=== PATIENT | female | born 1930 | race Caucasian/White ===

== ENCOUNTER → 2016-06-12 | Outpatient (REF) | payer MEDICARE, BC ==
[2016-06-12 18:10] LABS: ALBUMIN 3.7 GM/DL (3.2-5.2); ALBUMIN/GLOBULIN RATIO 1.09 (1.00-1.93); BILIRUBIN,TOTAL 0.7 MG/DL (0.2-1.0); CALCIUM LEVEL 9.8 MG/DL (8.8-10.2); CREATININE FOR GFR 1.6 MG/DL (0.55-1.02); GLOMERULAR FILTRATION RATE 32.6 (>32); POTASSIUM SERUM 3.8 MEQ/L (3.5-5.1); TOTAL PROTEIN 7.1 GM/DL (6.4-8.2)
== END ==
LOC: M SFHCPLAZ 14:35
PROVIDERS: ATTEND Internal Medicine
DX: I10 Essential (primary) hypertension (principal); E11.9 Type 2 diabetes mellitus without complications; E03.9 Hypothyroidism, unspecified

== ENCOUNTER → 2017-06-10 | Outpatient (REF) | payer MEDICARE, BC ==
[2017-06-10 19:14] LABS: ESTIMATED AVERAGE GLUCOSE 140 MG/DL (60-110); HEMOGLOBIN A1c 6.5 %
[2017-06-10 19:20] LABS: PTH INTACT 132.6 PG/ML (18.5-88.0)
[2017-06-10 19:21] LABS: HEMATOCRIT 45.3 % (36.0-47.0); HEMOGLOBIN 14.9 g/dl (12.0-15.5); MEAN CORPUSCULAR HEMOGLOBIN 30.3 pg (27.0-33.0); MEAN CORPUSCULAR HGB CONC 32.9 g/dl (32.0-36.5); MEAN CORPUSCULAR VOLUME 92.3 fl (80.0-96.0); PLATELET COUNT, AUTOMATED 258 10^3/uL (150-450); RED BLOOD COUNT 4.91 10^6/uL (4.00-5.40); RED CELL DISTRIBUTION WIDTH 12.5 % (11.5-14.5); WHITE BLOOD COUNT 8.8 10^3/uL (4.0-10.0)
[2017-06-10 19:30] LABS: ALBUMIN 3.3 GM/DL (3.2-5.2); ALBUMIN/GLOBULIN RATIO 0.89 (1.00-1.93); ALKALINE PHOSPHATASE 93 U/L (45-117); ALT/SGPT 18 U/L (12-78); ANION GAP 6 MEQ/L (8-16); AST/SGOT 16 U/L (7-37); BILIRUBIN,TOTAL 0.8 MG/DL (0.2-1.0); BLOOD UREA NITROGEN 32 MG/DL (7-18); CALCIUM LEVEL 9.6 MG/DL (8.8-10.2); CARBON DIOXIDE LEVEL 32 MEQ/L (21-32); CHLORIDE LEVEL 104 MEQ/L (98-107); CHOLESTEROL LEVEL 153 MG/DL (<200); CHOLESTEROL RISK RATIO 3.825 (<5); CREATININE FOR GFR 1.53 MG/DL (0.55-1.30); GLOMERULAR FILTRATION RATE 34.3 (>32); GLUCOSE, FASTING 94 MG/DL (70-100); HDL CHOLESTEROL 40 MG/DL (>40); LDL CHOLESTEROL 75.8 MG/DL (<100); NON-HDL-C 113 MG/DL; SODIUM LEVEL 142 MEQ/L (136-145); TRIGLYCERIDES LEVEL 186 MG/DL (<150)
[2017-06-10 20:49] LABS: CREATININE, URINE 60.8 MG/DL; MAU/CREAT RATIO 1940.7 MCG/MG (0.0-30.0)
== END ==
LOC: M SFHCPLAZ 15:46
DX: Z00.00 Encounter for general adult medical examination without abnormal findings (principal); I12.9 Hypertensive chronic kidney disease with stage 1 through stage 4 chronic kidney disease, or unspecified chronic kidney disease; N18.3 Chronic kidney disease, stage 3 (moderate); E11.22 Type 2 diabetes mellitus with diabetic chronic kidney disease; E03.9 Hypothyroidism, unspecified; E78.00 Pure hypercholesterolemia, unspecified; Z79.84 Long term (current) use of oral hypoglycemic drugs; Z79.899 Other long term (current) drug therapy
CPT/HCPCS: 83735

== ENCOUNTER → 2018-01-01 | Outpatient (REF) | payer MEDICARE, BC ==
[2018-01-01 17:34] LABS: ALBUMIN 3.5 GM/DL (3.2-5.2); ALBUMIN/GLOBULIN RATIO 0.92 (1.00-1.93); ALKALINE PHOSPHATASE 76 U/L (45-117); ALT/SGPT 20 U/L (12-78); ANION GAP 11 MEQ/L (8-16); AST/SGOT 14 U/L (7-37); BILIRUBIN,TOTAL 0.9 MG/DL (0.2-1.0); BLOOD UREA NITROGEN 38 MG/DL (7-18); CALCIUM LEVEL 10.7 MG/DL (8.8-10.2); CARBON DIOXIDE LEVEL 30 MEQ/L (21-32); CHLORIDE LEVEL 103 MEQ/L (98-107); CHOLESTEROL LEVEL 191 MG/DL (<200); CHOLESTEROL RISK RATIO 4.152 (<5); CREATININE FOR GFR 1.78 MG/DL (0.55-1.30); GLOMERULAR FILTRATION RATE 28.8 (>32); GLUCOSE, FASTING 110 MG/DL (70-100); HDL CHOLESTEROL 46 MG/DL (>40); LDL CHOLESTEROL 105 MG/DL (<100); MAGNESIUM LEVEL 2.1 MG/DL (1.8-2.4); NON-HDL-C 145 MG/DL; POTASSIUM SERUM 3.9 MEQ/L (3.5-5.1); SODIUM LEVEL 144 MEQ/L (136-145); TOTAL PROTEIN 7.3 GM/DL (6.4-8.2); TRIGLYCERIDES LEVEL 202 MG/DL (<150)
[2018-01-01 17:42] LABS: ESTIMATED AVERAGE GLUCOSE 140 MG/DL (60-110); HEMOGLOBIN A1c 6.5 %
== END ==
LOC: M SFHCPLAZ 14:47
DX: E11.22 Type 2 diabetes mellitus with diabetic chronic kidney disease (principal); E78.00 Pure hypercholesterolemia, unspecified; N18.3 Chronic kidney disease, stage 3 (moderate)
CPT/HCPCS: 83735

== ENCOUNTER → 2018-07-22 | Outpatient (REF) | payer MEDICARE ==
[2018-07-22 18:06] LABS: HEMATOCRIT 44.4 % (36.0-47.0); HEMOGLOBIN 14.6 g/dl (12.0-15.5); MEAN CORPUSCULAR HEMOGLOBIN 31.1 pg (27.0-33.0); MEAN CORPUSCULAR HGB CONC 32.9 g/dl (32.0-36.5); MEAN CORPUSCULAR VOLUME 94.5 fl (80.0-96.0); PLATELET COUNT, AUTOMATED 293 10^3/uL (150-450)
[2018-07-22 18:19] LABS: ALBUMIN 3.3 GM/DL (3.2-5.2); BILIRUBIN,TOTAL 0.8 MG/DL (0.2-1.0); CALCIUM LEVEL 9.6 MG/DL (8.8-10.2); CHOLESTEROL RISK RATIO 3.86 (<5); CREATININE FOR GFR 1.96 MG/DL (0.55-1.30); GLOMERULAR FILTRATION RATE 25.7 (>32); MAGNESIUM LEVEL 2.1 MG/DL (1.8-2.4); POTASSIUM SERUM 3.9 MEQ/L (3.5-5.1); THYROID STIMULATING HORMONE 4.71 uIU/ML (0.358-3.740); TOTAL PROTEIN 7.2 GM/DL (6.4-8.2)
[2018-07-22 18:43] LABS: HEMOGLOBIN A1c 6.7 %
[2018-07-22 18:57] LABS: CREATININE, URINE 80.3 MG/DL; MAU/CREAT RATIO 3063.5 MCG/MG (0.0-30.0)
== END ==
LOC: M SFHCPLAZ 14:54
PROVIDERS: ATTEND Internal Medicine
DX: J45.909 Unspecified asthma, uncomplicated (principal); I12.9 Hypertensive chronic kidney disease with stage 1 through stage 4 chronic kidney disease, or unspecified chronic kidney disease; E11.9 Type 2 diabetes mellitus without complications; E78.00 Pure hypercholesterolemia, unspecified; E03.9 Hypothyroidism, unspecified

== ENCOUNTER → 2019-07-07 | Outpatient (REF) | payer MEDICARE ==
[2019-07-07 17:55] LABS: HEMATOCRIT 42.1 % (36.0-47.0); MEAN CORPUSCULAR HEMOGLOBIN 28.2 pg (27.0-33.0); MEAN CORPUSCULAR HGB CONC 30.9 g/dl (32.0-36.5); MEAN CORPUSCULAR VOLUME 91.3 fl (80.0-96.0); PLATELET COUNT, AUTOMATED 270 10^3/uL (150-450); RED BLOOD COUNT 4.61 10^6/uL (4.00-5.40); WHITE BLOOD COUNT 7.2 10^3/uL (4.0-10.0)
[2019-07-07 18:05] LABS: ALBUMIN 2.7 GM/DL (3.2-5.2); BILIRUBIN,TOTAL 0.9 MG/DL (0.2-1.0); CALCIUM LEVEL 9.5 MG/DL (8.8-10.2); CREATININE FOR GFR 2.28 MG/DL (0.55-1.30); GLOMERULAR FILTRATION RATE 21.5 (>32); MAGNESIUM LEVEL 2.1 MG/DL (1.8-2.4); POTASSIUM SERUM 4.3 MEQ/L (3.5-5.1); PTH INTACT 136.9 PG/ML (18.5-88.0); THYROID STIMULATING HORMONE 2.75 uIU/ML (0.358-3.740); TOTAL PROTEIN 6.9 GM/DL (6.4-8.2)
[2019-07-07 18:28] LABS: HEMOGLOBIN A1c 6.3 %
== END ==
LOC: M SFHCPLAZ 16:18
PROVIDERS: ATTEND Internal Medicine
DX: I12.9 Hypertensive chronic kidney disease with stage 1 through stage 4 chronic kidney disease, or unspecified chronic kidney disease (principal); E11.9 Type 2 diabetes mellitus without complications; N18.3 Chronic kidney disease, stage 3 (moderate); E03.9 Hypothyroidism, unspecified; J45.909 Unspecified asthma, uncomplicated; R60.9 Edema, unspecified

== ENCOUNTER → 2019-07-22 | Outpatient (REF) | payer MEDICARE ==
[2019-07-22 16:04] LABS: CALCIUM LEVEL 9.1 MG/DL (8.8-10.2); CREATININE FOR GFR 2.59 MG/DL (0.55-1.30); GLOMERULAR FILTRATION RATE 18.6 (>32); MAGNESIUM LEVEL 1.9 MG/DL (1.8-2.4); POTASSIUM SERUM 3.7 MEQ/L (3.5-5.1)
[2019-07-22 16:08] LABS: PTH INTACT 181.8 PG/ML (18.5-88.0)
== END ==
LOC: M SFHCPLAZ 13:51
PROVIDERS: ATTEND Internal Medicine
DX: I12.9 Hypertensive chronic kidney disease with stage 1 through stage 4 chronic kidney disease, or unspecified chronic kidney disease (principal); N18.3 Chronic kidney disease, stage 3 (moderate); R60.9 Edema, unspecified; I50.9 Heart failure, unspecified

== ENCOUNTER → 2019-12-03 | Outpatient (CLI) | payer MEDICARE ==
[2019-12-03 16:52] LABS: BASO # 0.1 10^3/uL (0.0-0.2); BASO % 0.9 % (0.0-1.0); EOS # 0.3 10^3/uL (0.0-0.5); EOS % 2.9 % (0.0-3.0); HEMATOCRIT 42.9 % (36.0-47.0); LYMPH # 1.9 10^3/uL (1.5-5.0); LYMPH % 19.5 % (24.0-44.0); MEAN CORPUSCULAR HGB CONC 32.6 g/dl (32.0-36.5); MEAN CORPUSCULAR VOLUME 95.1 fl (80.0-96.0); MONO # 0.9 10^3/uL (0.0-0.8); MONO % 9.2 % (0.0-5.0); NEUTROPHILS # 6.7 10^3/uL (1.5-8.5); PLATELET COUNT, AUTOMATED 299 10^3/uL (150-450); RED BLOOD COUNT 4.51 10^6/uL (4.00-5.40); WHITE BLOOD COUNT 9.9 10^3/uL (4.0-10.0)
[2019-12-03 16:56] LABS: ALBUMIN 3.1 GM/DL (3.2-5.2); BILIRUBIN,TOTAL 0.8 MG/DL (0.2-1.0); CALCIUM LEVEL 9.8 MG/DL (8.8-10.2); CHOLESTEROL RISK RATIO 3.125 (<5); CREATININE FOR GFR 1.85 MG/DL (0.55-1.30); GLOMERULAR FILTRATION RATE 27.4 (>32); POTASSIUM SERUM 3.9 MEQ/L (3.5-5.1); TOTAL PROTEIN 7.1 GM/DL (6.4-8.2)
[2019-12-07 11:57] LABS: PTH INTACT 58.2 PG/ML (18.5-88.0)
== END ==
LOC: M PLALAB 13:48
PROVIDERS: ATTEND Internal Medicine
DX: I12.9 Hypertensive chronic kidney disease with stage 1 through stage 4 chronic kidney disease, or unspecified chronic kidney disease (principal); I50.9 Heart failure, unspecified; N18.3 Chronic kidney disease, stage 3 (moderate); I48.19 Other persistent atrial fibrillation; E78.00 Pure hypercholesterolemia, unspecified; E11.8 Type 2 diabetes mellitus with unspecified complications

== ENCOUNTER 2020-03-25 15:18 | Inpatient (IN) | payer MEDICARE ==
[~2020-03-25] VITALS: Ht 160 cm; Wt 81.9 kg
--- OUTSIDE RECORDS SUMMARY | 2020-03-25 15:23 | CCD ---
Author Author [facility] Organization [facility] Address Unknown Phone Unavailable Support Name Relationship Address Phone RETIRED Next Of Kin Unknown RADHA BORJAS Next Of Kin [address] [place] [address] SHELBIE BORJAS Next Of Kin [address] [place] [address] Yogesh Borjas & Radha ECON [address] [place] [address] Unavailable Re-disclosure Warning The records that you are about to access may contain information from federally-assisted alcohol or drug abuse programs. If such information is present, then the following federally mandated warning applies: This information has been disclosed to you from records protected by federal confidentiality rules (42 CFR part 2). The federal rules prohibit you from making any further disclosure of this information unless further disclosure is expressly permitted by the written consent of the person to whom it pertains or as otherwise permitted by 42 CFR part 2. A general authorization for the release of medical or other information is NOT sufficient for this purpose. The Federal rules restrict any use of the information to criminally investigate or prosecute any alcohol or drug abuse patient.The records that you are about to access may contain highly sensitive health information, the redisclosure of which is protected by Article 27-F of the [facility] Public Health law. If you continue you may have access to information: Regarding HIV / AIDS; Provided by facilities licensed or operated by the [facility] Office of Mental Health; or Provided by the [facility] Office for People With Developmental Disabilities. If such information is present, then the following [facility] mandated warning applies: This information has been disclosed to you from confidential records which are protected by state law. State law prohibits you from making any further disclosure of this information without the specific written consent of the person to whom it pertains, or as otherwise permitted by law. Any unauthorized further disclosure in violation of state law may result in a fine or fpc sentence or both. A general authorization for the release of medical or other information is NOT sufficient authorization for further disc losure. Encounters Encounter Providers Location Date Indications Data Source(s ) [facility] [place] [facility] [address] 08/31/2019 12:00:00 AM EDT eCW1 ([facility]) Unknown [address] [facility] [place] [address] 08/28/2019 12:00:00 AM EDT eCW1 ([facility]) [facility] Matt [address] [facility] [place] [address] 07/22/2019 12:00:00 AM EDT eCW1 ([facility]) [facility] Matt Edouard [facility] [address] 07/07/2019 12:00:00 AM EDT eCW1 ([facility]) [facility] Matt Edouard [facility] [address] 06/08/2019 12:00:00 AM EDT eCW1 ([facility]) [facility] [address] 01/27/2019 12:00:00 AM EST eCW1 ([facility]) Medications Medication Brand Name Start Date Product Form Dose Route Admi nistrative Instructions Pharmacy Instructions Status Indications Reaction Description Data Source(s) 17 gram/dose 03/21/2020 12:00:00 AM EST powder 1530 MIX ONE CAPFUL IN 8OZ OF WATER OR JUICE DAILY MIX ONE CAPFUL IN 8OZ OF WATER OR JUICE DAILY SOLD: 03/22/2020 [facility] 200 mg 03/21/2020 12:00:00 AM EST capsule 90 TAKE ONE CAPSULE BY MOUTH EVERY DAY TAKE ONE CAPSULE BY MOUTH EVERY DAY SOLD: 03/22/2020 [facility] atorvastatin 10 MG Oral Tablet ATORVASTATIN CALCIUM 02/02/2020 1 2:00:00 AM EST tablet 90 TAKE ONE TABLET BY MOUTH EVERY D AY TAKE ONE TABLET BY MOUTH EVERY DAY SOLD: 02/02/2020 [facility] 20 mg 02/02/2020 12:00:00 AM EST capsule,delayed release (DR/EC) 90 TAKE ONE CAPSULE BY MOUTH EVERY DAY TAKE ONE CAPSULE BY MOUTH EVERY DAY SOLD: 02/02/2020 [facility] 20 mEq 01/08/2020 12:00:00 AM EDT tablet extended release 90 TAKE ONE TABLET BY MOUTH ONCE DAILY WITH FOOD TAKE ONE TABLET BY MOUTH ONCE DAILY WITH FOOD SOLD: 01/16/2020 [facility] 20 mg 01/08/2020 12:00:00 AM EDT tablet 90 TAKE ONE TABLET BY MOUTH EVERY MORNING TAKE ONE TABLET BY MOUTH EVERY MORNING SOLD: 01/16/2020 [facility] 0.25 mcg 12/27/2019 12:00:00 AM EDT capsule 90 TAKE ONE CAPSULE BY MOUTH EVERY DAY TAKE ONE CAPSULE BY MOUTH EVERY DAY SOLD: 12/27/2019 [facility] 20 mEq 11/03/2019 12:00:00 AM EDT tablet extended release 90 TAKE ONE TABLET BY MOUTH ONCE DAILY WITH FOOD TAKE ONE TABLET BY MOUTH ONCE DAILY WITH FOOD SOLD: 11/03/2019 [facility] 20 mg 11/03/2019 12:00:00 AM EDT tablet 90 TAKE ONE TABLET BY MOUTH EVERY MORNING TAKE ONE TABLET BY MOUTH EVERY MORNING SOLD: 11/03/2019 [facility] Calcitriol 0.11862 MG Oral Capsule 0.25 mcg CALCITRIOL 10/16/2019 12:00:00 AM EDT capsule 90 TAKE ONE CAPSULE BY MOUTH EV KATHYA DAY TAKE ONE CAPSULE BY MOUTH EVERY DAY SOLD: 10/19/2019 [facility] 160-25 mg 10/15/2019 12:00:00 AM EDT tablet 90 TAKE 1 TABLET BY MOUTH ONCE A DAY TAKE 1 TABLET BY MOUTH ONCE A DAY SOLD: 10/15/2019 [facility] 160-25 mg 10/15/2019 12:00:00 AM EDT tablet 90 TAKE 1 TABLET BY MOUTH ONCE A DAY TAKE 1 TABLET BY MOUTH ONCE A DAY SOLD: 02/02/2020 [facility] 88 mcg 10/06/2019 12:00:00 AM EDT tablet 90 TAKE 1 TABLET BY MOUTH ONCE A DAY TAKE 1 TABLET BY MOUTH ONCE A DAY SOLD: 01/03/2020 [facility] 88 mcg 10/06/2019 12:00:00 AM EDT tablet 90 TAKE 1 TABLET BY MOUTH ONCE A DAY TAKE 1 TABLET BY MOUTH ONCE A DAY SOLD: 03/22/2020 [facility] 88 mcg 10/06/2019 12:00:00 AM EDT tablet 90 TAKE 1 TABLET BY MOUTH ONCE A DAY TAKE 1 TABLET BY MOUTH ONCE A DAY SOLD: 10/06/2019 [facility] 5 mg 07/07/2019 12:00:00 AM EDT tablet 45 TAKE 1/2 TABLET TABLET BY MOUTH ONCE A DAY TAKE 1/2 TABLET TABLET BY MOUTH ONCE A DAY SOLD: 10/31/2019 [facility] 20 mg 07/07/2019 12:00:00 AM EDT tablet 30 TAKE 1 TABLET BY MOUTH DAILY TAKE 1 TABLET BY MOUTH DAILY SOLD: 12/27/2019 [facility] 20 mg 07/07/2019 12:00:00 AM EDT tablet 30 TAKE 1 TABLET BY MOUTH DAILY TAKE 1 TABLET BY MOUTH DAILY SOLD: 07/07/2019 [facility] 20 mg 07/07/2019 12:00:00 AM EDT tablet 30 TAKE 1 TABLET BY MOUTH DAILY TAKE 1 TABLET BY MOUTH DAILY SOLD: 08/16/2019 [facility] torsemide 20 MG Oral Tablet Torsemide 20 MG Torsemide 20 MG 07/07/2019 12:00:00 AM EDT active 1 tab eCW1 ([facility]) 20 mg 07/07/2019 12:00:00 AM EDT tablet 30 TAKE 1 TABLET BY MOUTH DAILY TAKE 1 TABLET BY MOUTH DAILY SOLD: 10/15/2019 [facility] 20 mEq 07/07/2019 12:00:00 AM EDT tablet extended release 90 TAKE 1 TABLET BY MOUTH ONCE A DAY WITH FOOD TAKE 1 TABLET BY MOUTH ONCE A DAY WITH FOOD SOLD: 07/07/2019 [facility] 5 mg 07/07/2019 12:00:00 AM EDT tablet 45 TAKE 1/2 TABLET TABLET BY MOUTH ONCE A DAY TAKE 1/2 TABLET TABLET BY MOUTH ONCE A DAY SOLD: 07/07/2019 [facility] 20 mg 07/07/2019 12:00:00 AM EDT tablet 30 TAKE 1 TABLET BY MOUTH DAILY TAKE 1 TABLET BY MOUTH DAILY SOLD: 03/22/2020 [facility] 5 mg 07/07/2019 12:00:00 AM EDT tablet 45 TAKE 1/2 TABLET TABLET BY MOUTH ONCE A DAY TAKE 1/2 TABLET TABLET BY MOUTH ONCE A DAY SOLD: 01/31/2020 [facility] 10 mg 06/30/2019 12:00:00 AM EDT tablet 90 TAKE ONE TABLET BY MOUTH EVERY DAY TAKE ONE TABLET BY MOUTH EVERY DAY SOLD: 01/03/2020 [facility] 10 mg 06/30/2019 12:00:00 AM EDT tablet 90 TAKE ONE TABLET BY MOUTH EVERY DAY TAKE ONE TABLET BY MOUTH EVERY DAY SOLD: 06/30/2019 [facility] 200 mg 03/18/2019 12:00:00 AM EST capsule 90 TAKE 1 CAPSULE BY MOUTH ONCE A DAY TAKE 1 CAPSULE BY MOUTH ONCE A DAY SOLD: 12/27/2019 [facility] 200 mg 03/18/2019 12:00:00 AM EST capsule 90 TAKE 1 CAPSULE BY MOUTH ONCE A DAY TAKE 1 CAPSULE BY MOUTH ONCE A DAY SOLD: 09/29/2019 [facility] 200 mg 03/18/2019 12:00:00 AM EST capsule 90 TAKE 1 CAPSULE BY MOUTH ONCE A DAY TAKE 1 CAPSULE BY MOUTH ONCE A DAY SOLD: 06/30/2019 [facility] 200 mg 03/18/2019 12:00:00 AM EST capsule 90 TAKE 1 CAPSULE BY MOUTH ONCE A DAY TAKE 1 CAPSULE BY MOUTH ONCE A DAY SOLD: 03/19/2019 [facility] atorvastatin 10 MG Oral Tablet ATORVASTATIN CALCIUM 02/03/2019 1 2:00:00 AM EST tablet 90 TAKE ONE TABLET BY MOUTH EVERY D AY TAKE ONE TABLET BY MOUTH EVERY DAY SOLD: 02/03/2019 [facility] 20 mg 02/03/2019 12:00:00 AM EST capsule,delayed release (DR/EC) 90 TAKE ONE CAPSULE BY MOUTH EVERY DAY TAKE ONE CAPSULE BY MOUTH EVERY DAY SOLD: 02/03/2019 [facility] 10 mg 02/03/2019 12:00:00 AM EST tablet 90 TAKE ONE TABLET BY MOUTH EVERY DAY TAKE ONE TABLET BY MOUTH EVERY DAY SOLD: 05/05/2019 [facility] 20 mg 02/03/2019 12:00:00 AM EST capsule,delayed release (DR/EC) 90 TAKE ONE CAPSULE BY MOUTH EVERY DAY TAKE ONE CAPSULE BY MOUTH EVERY DAY SOLD: 10/31/2019 [facility] 20 mg 02/03/2019 12:00:00 AM EST capsule,delayed release (DR/EC) 90 TAKE ONE CAPSULE BY MOUTH EVERY DAY TAKE ONE CAPSULE BY MOUTH EVERY DAY SOLD: 08/04/2019 [facility] 20 mg 02/03/2019 12:00:00 AM EST capsule,delayed release (DR/EC) 90 TAKE ONE CAPSULE BY MOUTH EVERY DAY TAKE ONE CAPSULE BY MOUTH EVERY DAY SOLD: 05/05/2019 [facility] 10 mg 02/03/2019 12:00:00 AM EST tablet 90 TAKE ONE TABLET BY MOUTH EVERY DAY TAKE ONE TABLET BY MOUTH EVERY DAY SOLD: 08/04/2019 [facility] 10 mg 02/03/2019 12:00:00 AM EST tablet 90 TAKE ONE TABLET BY MOUTH EVERY DAY TAKE ONE TABLET BY MOUTH EVERY DAY SOLD: 10/31/2019 [facility] 17 gram/dose 11/05/2018 12:00:00 AM EDT powder 1530 MIX 1 CAPFUL IN 8 OUNCES OF WATER OR JUICE ONCE DAILY MIX 1 CAPFUL IN 8 OUNCES OF WATER OR JUI CE ONCE DAILY SOLD: 06/30/2019 [facility] 160-25 mg 07/23/2018 12:00:00 AM EDT tablet 90 TAKE ONE TABLET BY MOUTH EVERY DAY TAKE ONE TABLET BY MOUTH EVERY DAY SOLD: 02/03/2019 [facility] 160-25 mg 07/23/2018 12:00:00 AM EDT tablet 90 TAKE ONE TABLET BY MOUTH EVERY DAY TAKE ONE TABLET BY MOUTH EVERY DAY SOLD: 05/05/2019 [facility] 20 mg 07/23/2018 12:00:00 AM EDT tablet 90 TAKE ONE TABLET BY MOUTH EVERY MORNING TAKE ONE TABLET BY MOUTH EVERY MORNING SOLD: 03/24/2019 [facility] Calcitriol 0.88450 MG Oral Capsule 0.25 mcg CALCITRIOL 07/23/2018 12:00:00 AM EDT capsule 90 TAKE ONE CAPSULE BY MOUTH KATHYA TAKE ONE CAPSULE BY MOUTH EVERY DAY SOLD: 07/14/2019 [facility] Calcitriol 0.97684 MG Oral Capsule 0.25 mcg CALCITRIOL 07/23/2018 12:00:00 AM EDT capsule 90 TAKE ONE CAPSULE BY MOUTH KATHYA DAY TAKE ONE CAPSULE BY MOUTH EVERY DAY SOLD: 04/07/2019 [facility] 88 mcg 07/23/2018 12:00:00 AM EDT tablet 90 TAKE ONE TABLET BY MOUTH EVERY DAY TAKE ONE TABLET BY MOUTH EVERY DAY SOLD: 06/30/2019 [facility] 5 mg 07/23/2018 12:00:00 AM EDT tablet 45 TAKE 1/2 TABLET BY MOUTH ONCE DAILY TAKE 1/2 TABLET BY MOUTH ONCE DAILY SOLD: 04/07/2019 [facility] 88 mcg 07/23/2018 12:00:00 AM EDT tablet 90 TAKE ONE TABLET BY MOUTH EVERY DAY TAKE ONE TABLET BY MOUTH EVERY DAY SOLD: 04/07/2019 [facility] 10 mg 07/14/2018 12:00:00 AM EDT tablet 90 TAKE ONE TABLET BY MOUTH EVERY DAY TAKE ONE TABLET BY MOUTH EVERY DAY SOLD: 04/07/2019 [facility] 0.3 mg 07/11/2018 12:00:00 AM EDT tablet, sublingual 100 PLACE 1 TABLET UNDER TONGUE DIRECTED NEEDED CHEST PAIN PLACE 1 TABLET UNDER TONGUE DIRECTED NEEDED CHEST PAIN SOLD: 03/17/2019 [facility] 90 mcg/actuation 06/18/2018 12:00:00 AM EDT HFA aerosol inha ler 25 INHALE 2 PUFFS BY MOUTH EVERY 4HRS NEEDED SHORTNESS OF BREATH/ WHEEZING INHALE 2 PUFFS BY MOUTH EVERY 4HRS NEEDED SHORTNESS OF BREATH/ WHEEZING SOLD: 04/09/2019 [facility] 90 mcg/actuation 06/18/2018 12:00:00 AM EDT HFA aerosol inha ler 25 INHALE 2 PUFFS BY MOUTH EVERY 4HRS NEEDED SHORTNESS OF BREATH/ WHEEZING INHALE 2 PUFFS BY MOUTH EVERY 4HRS NEEDED SHORTNESS OF BREATH/ WHEEZING SOLD: 06/05/2019 [facility] 90 mcg/actuation 06/18/2018 12:00:00 AM EDT HFA aerosol inha ler 25 INHALE 2 PUFFS BY MOUTH EVERY 4HRS NEEDED SHORTNESS OF BREATH/ WHEEZING INHALE 2 PUFFS BY MOUTH EVERY 4HRS NEEDED SHORTNESS OF BREATH/ WHEEZING SOLD: 02/03/2019 [facility] 20 mEq 03/18/2018 12:00:00 AM EST tablet extended release 90 TAKE ONE TABLET BY MOUTH ONCE DAILY WITH FOOD TAKE ONE TABLET BY MOUTH ONCE DAILY WITH FOOD SOLD: 03/17/2019 [facility] Insurance Providers Payer name Policy type / Coverage type Policy ID Covered democrat ID Covered democrat's relationship to yates Policy Yates Plan Information MEDICARE BLUE PPO [id number] SP [id number] ANSI-Commercial [id number] ANSI-Medicare Part B [id number] ANSI-Medicare Part B [id number] ANSI-Medicare Part B [id number] ANSI-Medicare Part B [id number] ANSI-Commercial [id number] ANSI-Medicare Part B [id number] ANSI-Commercial [id number] ANSI-Commercial [id number] ANSI-Medicare Part B [id number] MEDICARE [id number] SP [id number] [employer]BS [place] PPO 302/[id number] SP [id number] ANSI-Commercial [id number] ANSI-Medicare Part B [id number] [facility]-Commercial [id number] [facility] [id number] MEDICARE [id number] SP [id number] B [id number] B [id number] Problems, Conditions, and Diagnoses Code Display Name Description Problem Type Effective Dates Data Source(s) I48.19 [id number] Other persistent atrial fibrillation Prob daron 07/22/2019 12:00:00 AM EDT eCW1 ([facility]) I48.19 [id number] Other persistent atrial fibrillation Prob daron 07/22/2019 12:00:00 AM EDT eCW1 ([facility]) I48.91 [id number] Atrial fibrillation, unspecified type Pro blem 07/08/2019 12:00:00 AM EDT eCW1 ([facility]) I50.9 [id number] Other congestive heart failure Problem 07/08/2019 12:00:00 AM EDT eCW1 ([facility]) I48.91 [id number] Atrial fibrillation, unspecified type Pro blem 07/08/2019 12:00:00 AM EDT eCW1 ([facility]) I50.9 [id number] Other congestive heart failure Problem 07/08/2019 12:00:00 AM EDT eCW1 ([facility]) Surgeries/Procedures Procedure Description Date Indications Data Source(s) Office Visit, Est Pt., Level 4 PC 07/22/2019 12:00:00 AM EDT eCW1 ([facility]) Office Visit, Est Pt., Level 4 FC 07/07/2019 12:00:00 AM EDT eCW1 ([facility]) Office Visit, Est Pt., Level 5 PC 07/07/2019 12:00:00 AM EDT eCW1 ([facility]) Medicare, Tricare, Martins, PC-INTERPRETATION AND REPORT 07/07/2019 12:00:00 AM EDT eCW1 ([facility]) Medicare, Tricare, [place]ins, FC-ELECTROCARDIOGRAM, TRACING ON LY 07/07/2019 12:00:00 AM EDT eCW1 ([facility]) Results ID Date Data Source PTH INTACT 07/22/2019 12:00:00 AM EDT eCW1 ([facility]) Name Value Range Interpretation Code Description Data Venessa rce(s) Supporting Document(s) 181.8 18.5-88.0 PTH INTACT eCW1 ([facility]) ID Date Data Source MAGNESIUM LEVEL 07/22/2019 12:00:00 AM EDT eCW1 ([facility]) Name Value Range Interpretation Code Description Data Venessa rce(s) Supporting Document(s) 1.9 1.8-2.4 MAGNESIUM LEVEL eCW1 ([facility]) ID Date Data Source Basic Metabolic Profile (BMP) 07/22/2019 12:00:00 AM EDT eCW 1 ([facility]) Name Value Range Interpretation Code Description Data Venessa rce(s) Supporting Document(s) 51 7-18 BLOOD UREA NITROGEN eCW1 ([facility]) 89 70-100 GLUCOSE, FASTING eCW1 ([facility]) 2.59 0.55-1.30 CREATININE FOR GFR eCW1 (On license of [facility]) 138 136-145 SODIUM LEVEL eCW1 ([facility]) 18.6 >32 GLOMERULAR FILTRATION RATE eCW 1 ([facility]) 3.7 3.5-5.1 POTASSIUM SERUM eCW1 ([facility]) 97 98-107 CHLORIDE LEVEL eCW1 ([facility]) 35 21-32 CARBON DIOXIDE LEVEL eCW1 ([facility]) 9.1 8.8-10.2 CALCIUM LEVEL eCW1 ([facility]) ID Date Data Source NT-PRO BNP 07/22/2019 12:00:00 AM EDT eCW1 ([facility]) Name Value Range Interpretation Code Description Data Venessa rce(s) Supporting Document(s) 4034 <450 NT-PRO BNP eCW1 ([facility]) ID Date Data Source TSH 07/07/2019 12:00:00 AM EDT eCW1 ([facility]) Name Value Range Interpretation Code Description Data Venessa rce(s) Supporting Document(s) 2.750 0.358-3.740 THYROID STIMULATING HORM ONE eCW1 ([facility]) ID Date Data Source 4548-4 07/07/2019 12:00:00 AM EDT eCW1 ([facility]) Name Value Range Interpretation Code Description Data Venessa rce(s) Supporting Document(s) Hemoglobin A1c/Hemoglobin.total in Blood 6.3 HEMOGLOBIN A1c eCW1 ([facility]) ID Date Data Source Comprehensive Metabolic Profile (CMP) 07/07/2019 12:00:00 AM EDT eCW1 ([facility]) Name Value Range Interpretation Code Description Data Venessa rce(s) Supporting Document(s) 89 70-100 GLUCOSE, FASTING eCW1 ([facility]) 40 7-18 BLOOD UREA NITROGEN eCW1 ([facility]) 21.5 >32 GLOMERULAR FILTRATION RATE eCW 1 ([facility]) 2.28 0.55-1.30 CREATININE FOR GFR eCW1 (On license of [facility]) 4.3 3.5-5.1 POTASSIUM SERUM eCW1 ([facility]) 144 136-145 SODIUM LEVEL eCW1 ([facility]) 108 98-107 CHLORIDE LEVEL eCW1 ([facility]) 28 21-32 CARBON DIOXIDE LEVEL eCW1 ([facility]) 9.5 8.8-10.2 CALCIUM LEVEL eCW1 ([facility]) 4 7-37 AST/SGOT eCW1 ([facility]) 6.9 6.4-8.2 TOTAL PROTEIN eCW1 ([facility]) 10 12-78 ALT/SGPT eCW1 ([facility]) 90 45-117 ALKALINE PHOSPHATASE eCW1 ([facility]) 0.9 0.2-1.0 BILIRUBIN,TOTAL eCW1 ([facility]) 0.64 1.00-1.93 ALBUMIN/GLOBULIN RATIO eCW1 ([facility]) 2.7 3.2-5.2 ALBUMIN eCW1 ([facility]) ID Date Data Source CBC - Complete Blood Count 07/07/2019 12:00:00 AM EDT eCW1 ( [facility]) Name Value Range Interpretation Code Description Data Venessa rce(s) Supporting Document(s) 13.0 12.0-15.5 HEMOGLOBIN eCW1 ([facility]) 7.2 4.0-10.0 WHITE BLOOD COUNT eCW1 ([facility]) 42.1 36.0-47.0 HEMATOCRIT eCW1 ([facility]) 4.61 4.00-5.40 RED BLOOD COUNT eCW1 ([facility]) 91.3 80.0-96.0 MEAN CORPUSCULAR VOLUME e CW1 ([facility]) 30.9 32.0-36.5 MEAN CORPUSCULAR HGB CONC eCW1 ([facility]) 28.2 27.0-33.0 MEAN CORPUSCULAR HEMOGLOB IN eCW1 ([facility]) 270 150-450 PLATELET COUNT, AUTOMATED eCW1 ([facility]) 15.5 11.5-14.5 RED CELL DISTRIBUTION WID TH eCW1 ([facility]) Procedure Social History Code Duration Value Status Description Data Source(s ) Smoking 07/22/2019 12:00:00 AM EDT Former Smoker completed Former Smoker eCW1 ([facility]) Vital Signs ID Date Data Source UNK Name Value Range Interpretation Code Description Data Source(s) Diastolic blood pressure 58 mm[Hg] 58 mm[Hg] eCW1 ([facility]) Systolic blood pressure 134 mm[Hg] 134 mm[Hg] e CW1 ([facility]) Body temperature [degF] eCW1 ([facility]) Respiratory rate 18 /min 18 /min eCW1 ([facility]) Heart rate 77 /min 77 /min eCW1 ([facility]) Body mass index (BMI) [Ratio] 34.25 kg/m2 34.25 kg/m2 eCW1 ([facility]) Body height 60 [in_us] 60 [in_us] eCW1 ([facility]) Body weight Measured 175.4 [lb_av] 175.4 [lb_av ] eCW1 ([facility]) Diastolic blood pressure 52 mm[Hg] 52 mm[Hg] eCW1 ([facility]) Systolic blood pressure 118 mm[Hg] 118 mm[Hg] e CW1 ([facility]) Body temperature 97.3 [degF] 97.3 [degF] eCW1 ( [facility]) Respiratory rate 18 /min 18 /min eCW1 ([facility]) Heart rate 75 /min 75 /min eCW1 ([facility]) Body mass index (BMI) [Ratio] 39.06 kg/m2 39.06 kg/m2 eCW1 ([facility]) Body height 60 [in_us] 60 [in_us] eCW1 ([facility]) Body weight Measured 200.0 [lb_av] 200.0 [lb_av ] eCW1 ([facility]) Patient Treatment Plan of Care Planned Activity Planned Date Details Description Data Source (s) torsemide 20 MG Oral Tablet 07/07/2019 12:00:00 AM EDT eCW1 ([facility])
[2020-03-25] MEDS ORDERED: CALC1CAP31 PO (16:14)
[2020-03-25] MEDS ORDERED: PARO20TA3 PO (16:14)
[2020-03-25] MEDS ORDERED: BISO5TAB14 PO (16:14)
[2020-03-25] MEDS ORDERED: PROAAER10 PO (16:14)
[2020-03-25] MEDS ORDERED: TORS20TA2 PO (16:14)
[2020-03-25] MEDS ORDERED: AMLO1TAB25 PO (16:14)
[2020-03-25] MEDS ORDERED: POTA1TAB14 PO (16:14)
[2020-03-25] MEDS ORDERED: LEVO88TA3 PO (16:14)
[2020-03-25] MEDS ORDERED: CELE1CAP9 PO (16:14)
[2020-03-25] MEDS ORDERED: OMEP-218 PO (16:14)
[2020-03-25] MEDS ORDERED: VALS160T3 PO (16:14)
[2020-03-25] MEDS ORDERED: ATOR1TAB19 PO (16:14)
--- NOTE | 2020-03-25 16:38 | REP ---
INDICATION: palpitations. COMPARISON: . TECHNIQUE: SINGLE PORTABLE AP VIEW OF THE CHEST WAS PERFORMED. FINDINGS: There is moderate cardiomegaly. There is no definite acute infiltrate. There is mild calcification of the thoracic aorta. Mediastinal silhouette otherwise appears unremarkable. IMPRESSION: Moderate cardiomegaly. No acute infiltrate. <Electronically signed by Maurice Orellana > 03/25/20 [id number]
--- OUTSIDE RECORDS SUMMARY | 2020-03-25 17:08 | CCD ---
Author Author [facility] Organization [facility] Address Unknown Phone Unavailable Support Name Relationship Address Phone RETIRED Next Of Kin Unknown RADHA BORJAS Next Of Kin [address] [place] [address] SHELBIE BORJAS Next Of Kin [address] [place] [address] Yogesh Borjas & Radha ECON [address] [facility] [place] [address] Unavailable Re-disclosure Warning The records that you [...] is protected by Article 27-F of the [facility] Public Health law. If you continue you may have access to information: Regarding HIV / AIDS; Provided by facilities licensed or operated by the [facility] Office of Mental Health; or Provided by the [facility] Office for People With Developmental Disabilities. If such information is present, then the following [facility] mandated warning applies: This information has been [...] law may result in a fine or assisted sentence or both. A general authorization for the release of medical or other information is NOT sufficient authorization for further disc losure. Encounters Encounter Providers Location Date Indications Data Source(s ) [facility] Matt [place]ard [facility] [address] 08/31/2019 12:00:00 AM EDT eCW1 ([facility]) Unknown [address] [facility] [place] [address] 08/28/2019 12:00:00 AM EDT eCW1 ([facility]) [facility] Matt [address] [facility] [place] [address] 07/22/2019 12:00:00 AM EDT eCW1 ([facility]) [facility] Matt Edouard [facility] [address] 07/07/2019 12:00:00 AM EDT eCW1 ([facility]) [facility] Matt Edouard [facility] [address] 06/08/2019 12:00:00 AM EDT eCW1 ([facility]) [facility] [address] 01/27/2019 12:00:00 AM EST eCW1 ([facility]) Medications Medication Brand Name Start Date [...] EVERY MORNING SOLD: 11/03/2019 [facility] Calcitriol 0.22490 MG Oral Capsule 0.25 mcg CALCITRIOL 10/16/2019 [...] 12:00:00 AM EDT active 1 tab eCW1 ([facility]) 20 mg 07/07/2019 12:00:00 AM EDT [...] EVERY MORNING SOLD: 03/24/2019 [facility] Calcitriol 0.07712 MG Oral Capsule 0.25 mcg CALCITRIOL 07/23/2018 12:00:00 AM EDT capsule 90 TAKE ONE CAPSULE BY MOUTH KATHYA TAKE ONE CAPSULE BY MOUTH EVERY DAY SOLD: 07/14/2019 [facility] Calcitriol 0.96407 MG Oral Capsule 0.25 mcg CALCITRIOL 07/23/2018 [...] [facility] Plan Information MEDICARE BLUE PPO 306 [id number] SP [id number] ANSI-Commercial [id number] ANSI-Medicare Part B [id number] ANSI-Medicare Part B [id number] ANSI-Medicare Part B [id number] ANSI-Medicare Part B [id number] ANSI-Commercial [id number] ANSI-Medicare Part B [id number] ANSI-Commercial [id number] ANSI-Commercial [id number] ANSI-Medicare Part B [id number] MEDICARE [id number] SP [id number] [employer] [place] PPO 302/307 [id number] SP [id number] ANSI-Commercial [id number] ANSI-Medicare Part B [id number] [facility]-Commercial [id number] [facility] [id number] MEDICARE [id number] SP [id number] B [id number] B [id number] Problems, Conditions, and Diagnoses Code Display Name Description Problem Type Effective Dates Data Source(s) I48.19 [id number] Other persistent atrial fibrillation Prob daron 07/22/2019 12:00:00 AM EDT eCW1 ([facility]) I48.19 [id number] Other persistent atrial fibrillation Prob daron 07/22/2019 12:00:00 AM EDT eCW1 ([facility]) I48.91 [id number] Atrial fibrillation, unspecified type Pro blem 07/08/2019 12:00:00 AM EDT eCW1 ([facility]) I50.9 [id number] Other congestive heart failure Problem 07/08/2019 12:00:00 AM EDT eCW1 ([facility]) I48.91 [id number] Atrial fibrillation, unspecified type Pro blem 07/08/2019 12:00:00 AM EDT eCW1 ([facility]) I50.9 [id number] Other congestive heart failure Problem 07/08/2019 12:00:00 AM EDT eCW1 ([facility]) Surgeries/Procedures Procedure Description Date Indications Data Source(s) Office Visit, Est Pt., Level 4 PC 07/22/2019 12:00:00 AM EDT eCW1 ([facility]) Office Visit, Est Pt., Level 4 FC 07/07/2019 12:00:00 AM EDT eCW1 ([facility]) Office Visit, Est Pt., Level 5 PC 07/07/2019 12:00:00 AM EDT eCW1 ([facility]) Medicare, T[employer]are, [place], PC-INTERPRETATION AND REPORT 07/07/2019 12:00:00 AM EDT eCW1 ([facility]) Medicare, [employer]are, [place], FC-ELECTROCARDIOGRAM, TRACING ON LY 07/07/2019 12:00:00 AM EDT eCW1 ([facility]) Results ID Date Data Source PTH INTACT 07/22/2019 12:00:00 AM EDT eCW1 ([facility]) Name Value Range Interpretation Code Description Data Venessa rce(s) Supporting Document(s) 181.8 18.5-88.0 PTH INTACT eCW1 ([facility]) ID Date Data Source MAGNESIUM LEVEL 07/22/2019 12:00:00 AM EDT eCW1 ([facility]) Name Value Range Interpretation Code Description Data Venessa rce(s) Supporting Document(s) 1.9 1.8-2.4 MAGNESIUM LEVEL eCW1 ([facility]) ID Date Data Source Basic Metabolic Profile (BMP) 07/22/2019 12:00:00 AM EDT eCW 1 ([facility]) Name Value Range Interpretation Code Description Data Venessa rce(s) Supporting Document(s) 51 7-18 BLOOD UREA NITROGEN eCW1 ([facility]) 89 70-100 GLUCOSE, FASTING eCW1 ([facility]) 2.59 0.55-1.30 CREATININE FOR GFR eCW1 ([facility]) 138 136-145 SODIUM LEVEL eCW1 ([facility]) 18.6 >32 GLOMERULAR FILTRATION RATE eCW 1 ([facility]) 3.7 3.5-5.1 POTASSIUM SERUM eCW1 ([facility]) 97 98-107 CHLORIDE LEVEL eCW1 ([facility]) 35 21-32 CARBON DIOXIDE LEVEL eCW1 ([facility]) 9.1 8.8-10.2 CALCIUM LEVEL eCW1 ([facility]) ID Date Data Source NT-PRO BNP 07/22/2019 12:00:00 AM EDT eCW1 ([facility]) Name Value Range Interpretation Code Description Data Venessa rce(s) Supporting Document(s) 4034 <450 NT-PRO BNP eCW1 ([facility]) ID Date Data Source TSH 07/07/2019 12:00:00 AM EDT eCW1 ([facility]) Name Value Range Interpretation Code Description Data Venessa rce(s) Supporting Document(s) 2.750 0.358-3.740 THYROID STIMULATING HORM ONE eCW1 ([facility]) ID Date Data Source 4548-4 07/07/2019 12:00:00 AM EDT eCW1 ([facility]) Name Value Range Interpretation Code Description Data Venessa rce(s) Supporting Document(s) Hemoglobin A1c/Hemoglobin.total in Blood 6.3 HEMOGLOBIN A1c eCW1 ([facility]) ID Date Data Source Comprehensive Metabolic Profile (CMP) 07/07/2019 12:00:00 AM EDT eCW1 ([facility]) Name Value Range Interpretation Code Description Data Venessa rce(s) Supporting Document(s) 89 70-100 GLUCOSE, FASTING eCW1 ([facility]) 40 7-18 BLOOD UREA NITROGEN eCW1 ([facility]) 21.5 >32 GLOMERULAR FILTRATION RATE eCW 1 ([facility]) 2.28 0.55-1.30 CREATININE FOR GFR eCW1 ([facility]) 4.3 3.5-5.1 POTASSIUM SERUM eCW1 ([facility]) 144 136-145 SODIUM LEVEL eCW1 ([facility]) 108 98-107 CHLORIDE LEVEL eCW1 ([facility]) 28 21-32 CARBON DIOXIDE LEVEL eCW1 ([facility]) 9.5 8.8-10.2 CALCIUM LEVEL eCW1 ([facility]) 4 7-37 AST/SGOT eCW1 ([facility]) 6.9 6.4-8.2 TOTAL PROTEIN eCW1 ([facility]) 10 12-78 ALT/SGPT eCW1 ([facility]) 90 45-117 ALKALINE PHOSPHATASE eCW1 ([facility]) 0.9 0.2-1.0 BILIRUBIN,TOTAL eCW1 ([facility]) 0.64 1.00-1.93 ALBUMIN/GLOBULIN RATIO eCW1 ([facility]) 2.7 3.2-5.2 ALBUMIN eCW1 ([facility]) ID Date Data Source CBC - Complete Blood Count 07/07/2019 12:00:00 AM EDT eCW1 ( [facility]) Name Value Range Interpretation Code Description Data Venessa rce(s) Supporting Document(s) 13.0 12.0-15.5 HEMOGLOBIN eCW1 ([facility]) 7.2 4.0-10.0 WHITE BLOOD COUNT eCW1 ([facility]) 42.1 36.0-47.0 HEMATOCRIT eCW1 ([facility]) 4.61 4.00-5.40 RED BLOOD COUNT eCW1 ([facility]) 91.3 80.0-96.0 MEAN CORPUSCULAR VOLUME e CW1 ([facility]) 30.9 32.0-36.5 MEAN CORPUSCULAR HGB CONC eCW1 ([facility]) 28.2 27.0-33.0 MEAN CORPUSCULAR HEMOGLOB IN eCW1 ([facility]) 270 150-450 PLATELET COUNT, AUTOMATED eCW1 ([facility]) 15.5 11.5-14.5 RED CELL DISTRIBUTION WID TH eCW1 ([facility]) Procedure Social History Code Duration Value Status Description Data Source(s ) Smoking 07/22/2019 12:00:00 AM EDT Former Smoker completed Former Smoker eCW1 ([facility]) Vital Signs ID Date Data Source UNK Name Value Range Interpretation Code Description Data Source(s) Diastolic blood pressure 58 mm[Hg] 58 mm[Hg] eCW1 ([facility]) Systolic blood pressure 134 mm[Hg] 134 mm[Hg] e CW1 ([facility]) Body temperature [degF] eCW1 ([facility]) Respiratory rate 18 /min 18 /min eCW1 ([facility]) Heart rate 77 /min 77 /min eCW1 ([facility]) Body mass index (BMI) [Ratio] 34.25 kg/m2 34.25 kg/m2 eCW1 ([facility]) Body height 60 [in_us] 60 [in_us] eCW1 ([facility]) Body weight Measured 175.4 [lb_av] 175.4 [lb_av ] eCW1 ([facility]) Diastolic blood pressure 52 mm[Hg] 52 mm[Hg] eCW1 ([facility]) Systolic blood pressure 118 mm[Hg] 118 mm[Hg] e CW1 ([facility]) Body temperature 97.3 [degF] 97.3 [degF] eCW1 ( [facility]) Respiratory rate 18 /min 18 /min eCW1 ([facility]) Heart rate 75 /min 75 /min eCW1 ([facility]) Body mass index (BMI) [Ratio] 39.06 kg/m2 39.06 kg/m2 eCW1 ([facility]) Body height 60 [in_us] 60 [in_us] eCW1 ([facility]) Body weight Measured 200.0 [lb_av] 200.0 [lb_av ] eCW1 ([facility]) Patient Treatment Plan of Care Planned Activity Planned Date Details Description Data Source (s) torsemide 20 MG Oral Tablet 07/07/2019 12:00:00 AM EDT eCW1 ([facility])
[2020-03-25 17:30] LABS: VENOUS BASE EXCESS -0.8 (-2.0-2.0); VENOUS HCO3 25.8 MEQ/L (23.0-27.0); VENOUS O2 SATURATION 81.5 % (60.0-80.0); VENOUS PARTIAL PRESSURE CO2 50.1 mmHg (38.0-50.0); VENOUS PARTIAL PRESSURE O2 47.2 mmHg (30.0-50.0); VENOUS STANDARD HCO3 23.4 MEQ/L; VENOUS TOTAL CO2 27.4 MEQ/L (24.0-28.0)
[2020-03-25 17:32] LABS: HEMATOCRIT 46.1 % (36.0-47.0); HEMOGLOBIN 14.2 g/dl (12.0-15.5); MEAN CORPUSCULAR HEMOGLOBIN 30.6 pg (27.0-33.0); MEAN CORPUSCULAR HGB CONC 30.8 g/dl (32.0-36.5); MEAN CORPUSCULAR VOLUME 99.4 fl (80.0-96.0); PLATELET COUNT, AUTOMATED 266 10^3/uL (150-450); RED BLOOD COUNT 4.64 10^6/uL (4.00-5.40); WHITE BLOOD COUNT 10.1 10^3/uL (4.0-10.0)
[2020-03-25 18:03] LABS: ACETAMINOPHEN LEVEL < 2.0 UG/ML (10.0-30.0); ALT/SGPT 16 U/L (12-78); BILIRUBIN,DIRECT 0.2 MG/DL (0.0-0.2); BILIRUBIN,TOTAL 0.7 MG/DL (0.2-1.0); BLOOD UREA NITROGEN 27 MG/DL (7-18); CALCIUM LEVEL 9.7 MG/DL (8.8-10.2); CARBON DIOXIDE LEVEL 28 MEQ/L (21-32); CHLORIDE LEVEL 109 MEQ/L (98-107); CK-MB VALUE MASS 2.1 NG/ML (<3.6); CPK CREATINE PHOSPHOKINASE 46 U/L (26-192); ETHYL ALCOHOL (ETHANOL) < 0.003 % (0.000-0.010); GLOMERULAR FILTRATION RATE 20.2 (>32); GLUCOSE, FASTING 114 MG/DL (70-100); MB/CK RELATIVE INDEX 4.57 (< OR =4); NT-PRO BNP 19820 PG/ML (<450); POTASSIUM SERUM 4.3 MEQ/L (3.5-5.1); SALICYLATE LEVEL < 1.7 MG/DL (5.0-30.0); SODIUM LEVEL 144 MEQ/L (136-145); TOTAL PROTEIN 6.9 GM/DL (6.4-8.2); TROPONIN I 0.18 NG/ML (< 0.10)
--- NOTE | 2020-03-25 18:08 | REPVR ---
PROCEDURE INFORMATION: Exam: CT Chest Without Contrast; Diagnostic Exam date and time: 03/25/2020 5:29 PM Age: 89 years old Clinical indication: Shortness of breath; Additional info: SOB TECHNIQUE: Imaging protocol: Diagnostic computed tomography of the chest without contrast. 3D rendering (Not supervised by radiologist): MIP and/or 3D reconstructed images were created by the technologist. Radiation optimization: All CT scans at this facility use at least one of these dose optimization techniques: automated exposure control; mA and/or kV adjustment per patient size (includes targeted exams where dose is matched to clinical indication); or iterative reconstruction. COMPARISON: MT Chest, 1 view 03/25/2020 4:24 PM FINDINGS: Lungs: New lung consolidation. There is mild perihilar interstitial prominence which may be due to edema. Pleural space: No pleural effusion or pneumothorax. Heart: Cardiomegaly without pericardial effusion. Aorta: There is no aneurysmal dilatation of thoracic aorta. Atherosclerosis. Lymph nodes: No significant mediastinal lymphadenopathy. The kia are not well assessed on this noncontrast study. Gallbladder and bile ducts: Cholelithiasis Bones/joints: Skeletal degeneration particularly in the right shoulder. There is cupping of thoracic vertebral body endplates which may be due to osteopenia. These are of indeterminate age. Soft tissues: Unremarkable. IMPRESSION: No evidence of pneumonia or congestive heart failure although there may be mild perihilar interstitial edema. Electronically signed by: Bisi Zhong On 03/25/2020 18:07:51 PM
--- NOTE | 2020-03-25 18:10 | REPVR ---
PROCEDURE INFORMATION: Exam: CT Head Without Contrast Exam date and time: 03/25/2020 5:29 PM Age: 89 years old Clinical indication: Altered mental status/memory loss TECHNIQUE: Imaging protocol: Computed tomography of the head without contrast. Radiation optimization: All CT scans at this facility use at least one of these dose optimization techniques: automated exposure control; mA and/or kV adjustment per patient size (includes targeted exams where dose is matched to clinical indication); or iterative reconstruction. COMPARISON: No relevant prior studies available. FINDINGS: Brain: No acute intracranial hemorrhage is visualized. The white-pryor differentiation is preserved demonstrating no acute territorial type infarct. There are scattered foci of white matter hypodensity, likely representing small vessel ischemic disease in a patient this age. The acuity of the white matter disease is indeterminate. Asymmetric volume loss of the right cerebral hemisphere is visualized. Cerebral ventricles: There is mild prominence of the ventricles and sulci, compatible with atrophy. Bones/joints: Midline deviation or shift to the left of approximately 7 mm visualized, although there is no significant mass effect upon the right lateral ventricle. The calvarium demonstrates no evidence for a depressed fracture. Paranasal sinuses: Visualized sinuses are unremarkable. No fluid levels. Mastoid air cells: No mastoid effusion. Vasculature: Mild hyperdensity of the left middle cerebral artery within the sylvian fissure, and thrombus cannot be excluded. Intracranial atherosclerosis visualized. Soft tissues: Unremarkable. IMPRESSION: 1. No acute intracranial hemorrhage or acute territorial type infarct. 2. Mild hyperdensity of the left middle cerebral artery within the sylvian fissure, and thrombus cannot be excluded. This can be further evaluated with CTA. 3. There are scattered foci of white matter hypodensity, likely representing small vessel ischemic disease in a patient this age. 4. Midline deviation or shift to the left of approximately 7 mm visualized, although there is no significant mass effect upon the right lateral ventricle. 5. Mild atrophy. Asymmetric volume loss of the right cerebral hemisphere is visualized. 6. If further evaluation is clinically indicated, an MRI of the brain is recommended. Electronically signed by: Tao Calero On 03/25/2020 18:09:56 PM
--- NOTE | 2020-03-25 18:21 | ECGEPIP ---
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
[2020-03-25] MEDS ORDERED: NS 1,000 ML IV SCH (18:30)
[2020-03-25 18:43] LABS: BILIRUBIN, URINE MANUAL NEGATIVE (NEGATIVE); GLUCOSE, URINE (UA) MANUAL 1+(100 MG/DL) mg/dL (NEGATIVE); KETONE, URINE MANUAL NEGATIVE (NEGATIVE); UROBILINOGEN, URINE MANUAL NORMAL (NORMAL)
[2020-03-25 18:47] LABS: BACTERIA, URINE NONE SEEN; HYALINE CAST, URINE NONE SEEN /lpf (0-1); RBC, URINE 0-1 /hpf (0-3); SQUAMOUS EPITHELIAL CELL URINE MOD AMOUNT /hpf (SMALL AMT); TRANSITIONAL EPI CELLS, URINE SMALL AMOUNT /hpf
[2020-03-25] MEDS ORDERED: med rec comment (19:25)
--- OUTSIDE RECORDS SUMMARY | 2020-03-25 20:47 | CCD ---
Author Author [facility] Organization [facility] Address Unknown Phone Unavailable Support Name Relationship Address Phone RETIRED Next Of Kin Unknown RADHA BORJAS Next Of Kin [address] [place] [address] SHELBIE BORJAS Next Of Kin [address] [place] [address] Yogesh Borjas & Radha ECON [address] [place] [address] Unavailable Re-disclosure Warning The records that you [...] is protected by Article 27-F of the [place] Public Health law. If you continue you may have access to information: Regarding HIV / AIDS; Provided by facilities licensed or operated by the [facility] Office of Mental Health; or Provided by the [facility] Office for People With Developmental Disabilities. If such information is present, then the following [facility] mandated warning applies: This information has been [...] law may result in a fine or alf sentence or both. A general authorization for the release of medical or other information is NOT sufficient authorization for further disc losure. Encounters Encounter Providers Location Date Indications Data Source(s ) [facility] Matt Edouard [facility] [address] 08/31/2019 12:00:00 AM EDT eCW1 ([facility]) Unknown [address] [facility] [place] [address] 08/28/2019 12:00:00 AM EDT eCW1 ([facility]) [facility] Matt [address] [facility] [place] [address] 07/22/2019 12:00:00 AM EDT eCW1 ([facility]) [facility] Matt Edouard [facility] [address] 07/07/2019 12:00:00 AM EDT eCW1 ([facility]) [facility] Matt Edouard [facility] [address] 06/08/2019 12:00:00 AM EDT eCW1 ([facility] [address] 01/27/2019 12:00:00 AM EST eCW1 ([facility]) Medications Medication Brand Name Start Date [...] EVERY MORNING SOLD: 11/03/2019 [facility] Calcitriol 0.59652 MG Oral Capsule 0.25 mcg CALCITRIOL 10/16/2019 [...] EVERY MORNING SOLD: 03/24/2019 [facility] Calcitriol 0.82288 MG Oral Capsule 0.25 mcg CALCITRIOL 07/23/2018 12:00:00 AM EDT capsule 90 TAKE ONE CAPSULE BY MOUTH KATHYA TAKE ONE CAPSULE BY MOUTH EVERY DAY SOLD: 07/14/2019 [facility] Calcitriol 0.78407 MG Oral Capsule 0.25 mcg CALCITRIOL 07/23/2018 [...] type / Coverage type Policy ID Covered alliance party ID Covered alliance party's relationship to yates Policy Yates Plan Information MEDICARE BLUE PPO 306 [id number] SP [id number] MEDICARE BLUE PPO 306 [id number] SP [id number] ANSI-Commercial [id number] ANSI-Medicare Part B [id number] ANSI-Medicare Part B [id number] ANSI-Medicare Part B [id number] ANSI-Medicare Part B [id number] ANSI-Commercial [id number] ANSI-Medicare Part B [id number] ANSI-Commercial [id number] ANSI-Commercial [id number] ANSI-Medicare Part B [id number] MEDICARE [id number] SP [id number] [employer] [place] PPO 302/[id number] SP [id number] ANSI-Commercial [id number] [facility]-Medicare Part B [id number] [facility]-Commercial [id number] [facility] [id number] MEDICARE [id number] SP [id number] B [id number] B [id number] Problems, Conditions, and Diagnoses Code Display Name Description Problem Type Effective Dates Data Source(s) I48.19 [id number] Other persistent atrial fibrillation Prob daron 07/22/2019 12:00:00 AM EDT eCW1 ([facility]) I48.19 [id number] Other persistent atrial fibrillation Prob daron 07/22/2019 12:00:00 AM EDT eCW1 ([facility]) I48.91 [id number] Atrial fibrillation, unspecified type Pro blem 07/08/2019 12:00:00 AM EDT eCW1 ([facility]) I50.9 [id number] Other congestive heart failure Problem 07/08/2019 12:00:00 AM EDT eCW1 ([facility]) I48.91 [id number] Atrial fibrillation, unspecified type Pro blem 07/08/2019 12:00:00 AM EDT eCW1 ([facility]) I50.9 [id number] Other congestive heart failure Problem 07/08/2019 12:00:00 AM EDT eCW1 ([facility]) Surgeries/Procedures Procedure Description Date Indications Data Source(s) Office Visit, Est Pt., Level 4 PC 07/22/2019 12:00:00 AM EDT eCW1 ([facility]) Office Visit, Est Pt., Level 4 FC 07/07/2019 12:00:00 AM EDT eCW1 ([facility]) Office Visit, Est Pt., Level 5 PC 07/07/2019 12:00:00 AM EDT eCW1 ([facility]) Medicare, Tricare, [place]ins, PC-INTERPRETATION AND REPORT 07/07/2019 12:00:00 AM EDT eCW1 ([facility]) Medicare, Tricare, [place], FC-ELECTROCARDIOGRAM, TRACING ON LY 07/07/2019 12:00:00 AM EDT eCW1 ([facility]) Results ID Date Data Source PTH INTACT 07/22/2019 12:00:00 AM EDT eCW1 ([facility]) Name Value Range Interpretation Code Description Data Venessa rce(s) Supporting Document(s) 181.8 18.5-88.0 PTH INTACT eCW1 ([facility]) ID Date Data Source MAGNESIUM LEVEL 07/22/2019 12:00:00 AM EDT eCW1 ([facility]) Name Value Range Interpretation Code Description Data Venessa rce(s) Supporting Document(s) 1.9 1.8-2.4 MAGNESIUM LEVEL eCW1 ([facility]) ID Date Data Source Basic Metabolic Profile (BMP) 07/22/2019 12:00:00 AM EDT eCW 1 ([facility]) Name Value Range Interpretation Code Description Data Venessa rce(s) Supporting Document(s) 51 7-18 BLOOD UREA NITROGEN eCW1 ([facility]) 89 70-100 GLUCOSE, FASTING eCW1 ([facility]) 2.59 0.55-1.30 CREATININE FOR GFR eCW1 ([facility]) 138 136-145 SODIUM LEVEL eCW1 ([facility]) 18.6 >32 GLOMERULAR FILTRATION RATE eCW 1 ([facility]) 3.7 3.5-5.1 POTASSIUM SERUM eCW1 ([facility]) 97 98-107 CHLORIDE LEVEL eCW1 ([facility]) 35 21-32 CARBON DIOXIDE LEVEL eCW1 ([facility]) 9.1 8.8-10.2 CALCIUM LEVEL eCW1 ([facility]) ID Date Data Source NT-PRO BNP 07/22/2019 12:00:00 AM EDT eCW1 ([facility]) Name Value Range Interpretation Code Description Data Venessa rce(s) Supporting Document(s) 4034 <450 NT-PRO BNP eCW1 ([facility]) ID Date Data Source TSH 07/07/2019 12:00:00 AM EDT eCW1 ([facility]) Name Value Range Interpretation Code Description Data Venessa rce(s) Supporting Document(s) 2.750 0.358-3.740 THYROID STIMULATING HORM ONE eCW1 ([facility]) ID Date Data Source 4548-4 07/07/2019 12:00:00 AM EDT eCW1 ([facility]) Name Value Range Interpretation Code Description Data Venessa rce(s) Supporting Document(s) Hemoglobin A1c/Hemoglobin.total in Blood 6.3 HEMOGLOBIN A1c eCW1 ([facility]) ID Date Data Source Comprehensive Metabolic Profile (CMP) 07/07/2019 12:00:00 AM EDT eCW1 ([facility]) Name Value Range Interpretation Code Description Data Venessa rce(s) Supporting Document(s) 89 70-100 GLUCOSE, FASTING eCW1 ([facility]) 40 7-18 BLOOD UREA NITROGEN eCW1 ([facility]) 21.5 >32 GLOMERULAR FILTRATION RATE eCW 1 ([facility]) 2.28 0.55-1.30 CREATININE FOR GFR eCW1 ([facility]) 4.3 3.5-5.1 POTASSIUM SERUM eCW1 ([facility]) 144 136-145 SODIUM LEVEL eCW1 ([facility]) 108 98-107 CHLORIDE LEVEL eCW1 ([facility]) 28 21-32 CARBON DIOXIDE LEVEL eCW1 ([facility]) 9.5 8.8-10.2 CALCIUM LEVEL eCW1 ([facility]) 4 7-37 AST/SGOT eCW1 ([facility]) 6.9 6.4-8.2 TOTAL PROTEIN eCW1 ([facility]) 10 12-78 ALT/SGPT eCW1 ([facility]) 90 45-117 ALKALINE PHOSPHATASE eCW1 ([facility]) 0.9 0.2-1.0 BILIRUBIN,TOTAL eCW1 ([facility]) 0.64 1.00-1.93 ALBUMIN/GLOBULIN RATIO eCW1 ([facility]) 2.7 3.2-5.2 ALBUMIN eCW1 ([facility]) ID Date Data Source CBC - Complete Blood Count 07/07/2019 12:00:00 AM EDT eCW1 ( [facility]) Name Value Range Interpretation Code Description Data Venessa rce(s) Supporting Document(s) 13.0 12.0-15.5 HEMOGLOBIN eCW1 ([facility]) 7.2 4.0-10.0 WHITE BLOOD COUNT eCW1 ([facility]) 42.1 36.0-47.0 HEMATOCRIT eCW1 ([facility]) 4.61 4.00-5.40 RED BLOOD COUNT eCW1 ([facility]) 91.3 80.0-96.0 MEAN CORPUSCULAR VOLUME e CW1 ([facility]) 30.9 32.0-36.5 MEAN CORPUSCULAR HGB CONC eCW1 ([facility]) 28.2 27.0-33.0 MEAN CORPUSCULAR HEMOGLOB IN eCW1 ([facility]) 270 150-450 PLATELET COUNT, AUTOMATED eCW1 ([facility]) 15.5 11.5-14.5 RED CELL DISTRIBUTION WID TH eCW1 ([facility]) Procedure Social History Code Duration Value Status Description Data Source(s ) Smoking 07/22/2019 12:00:00 AM EDT Former Smoker completed Former Smoker eCW1 ([facility]) Vital Signs ID Date Data Source UNK Name Value Range Interpretation Code Description Data Source(s) Diastolic blood pressure 58 mm[Hg] 58 mm[Hg] eCW1 ([facility]) Systolic blood pressure 134 mm[Hg] 134 mm[Hg] e CW1 ([facility]) Body temperature [degF] eCW1 ([facility]) Respiratory rate 18 /min 18 /min eCW1 ([facility]) Heart rate 77 /min 77 /min eCW1 ([facility]) Body mass index (BMI) [Ratio] 34.25 kg/m2 34.25 kg/m2 eCW1 ([facility]) Body height 60 [in_us] 60 [in_us] eCW1 ([facility]) Body weight Measured 175.4 [lb_av] 175.4 [lb_av ] eCW1 ([facility]) Diastolic blood pressure 52 mm[Hg] 52 mm[Hg] eCW1 ([facility]) Systolic blood pressure 118 mm[Hg] 118 mm[Hg] e CW1 ([facility]) Body temperature 97.3 [degF] 97.3 [degF] eCW1 ( [facility]) Respiratory rate 18 /min 18 /min eCW1 ([facility]) Heart rate 75 /min 75 /min eCW1 ([facility]) Body mass index (BMI) [Ratio] 39.06 kg/m2 39.06 kg/m2 W1 ([facility]) Body height 60 [in_us] 60 [in_us] eCW1 ([facility]) Body weight Measured 200.0 [lb_av] 200.0 [lb_av ] eCW1 ([facility]) Patient Treatment Plan of Care Planned Activity Planned Date Details Description Data Source (s) torsemide 20 MG Oral Tablet 07/07/2019 12:00:00 AM EDT eCW1 ([facility])
[2020-03-25] MEDS ORDERED: HumaLOG INSULIN (NovoLOG) PER UNIT SC SCH (21:00)
[2020-03-25] MEDS ORDERED: ACETAMINOPHEN TAB 650MG DOSE (2X325MG) PO PRN (21:30)
[2020-03-25] MEDS ORDERED: MAALOX 30 ML SUSP *UDC PO PRN (21:30)
[2020-03-25] MEDS ORDERED: MOM 30ML SUSPENSION UDC PO PRN (21:30)
[2020-03-25] MEDS ORDERED: ALBUTEROL 90 MCG/ACT 8GM HFA INHALER INH PRN (21:30)
[2020-03-25 22:04] LABS: FREE T4 1.24 NG/DL (0.76-1.46)
[2020-03-25] MEDS ORDERED: DEXTROSE 50% 50 ML SYRINGE IV PRN (22:45)
[2020-03-25] MEDS ORDERED: GLUCOSE 4GM CHEW TABLET PO PRN (22:45)
[2020-03-25] MEDS ORDERED: GLUCAGON INJ 1MG VIAL SC PRN (22:45)
--- NOTE | 2020-03-25 22:53 | HPEPDOC ---
General Date of Admission Mar 25, 2020 at 20:30 Date of Service: Mar 25, 2020 Primary Care Physician: Bruno Roblero Attending Physician: Erick Ayala MD Chief Complaint The patient is a 89-year-old female admitted with a reason for visit of Acute On Chronic Heart Failure/Altered Mental Stat. Source: Family Exam Limitations: Hard of hearing History of Present Illness History of present illness: 89-year-old female with HTN, DM 2, CKD 3, CHF, A. fib, HDL, hypothyroidism, asthma, psoriasis was brought into the emergency department accompanied by her tzckvsvp-we-ucl as patient was having hallucinations and seeing and hearing things since one week. Patient is hard of hearing and most of the history was g iven by her cujpjtpa-kv-woc. She reports patient was seeing things and thought she was being attacked or there was shooting for the last week. She was brought in today as today she agreed to go to the hospital. Gnyvxdzt-qq-gpt reports she has on and off appetite. Denies having any fever, chills, recent viral infections, fall, injury to head, denies any bowel or bladder incontinence. Past medical history: Hypertension Diabetes mellitus type 2 last HbA1c 6.3, in June 2019 CKD3 CHF A. fib on rate controlled Hypercholesterolemia Hypothyroidism Psoriasis Asthma Esophageal stricture with history of dilatation Osteoarthritis Anxiety Past surgical history: Appendectomy at age 16 Breast lumpectomy at age 20 Hysterectomy Partial bowel resection for adhesions in the past Ovarian surgery in the past Esophageal dilation endoscopically in 1997 Social history: Bzlyphgo-wp-swn denies any smoking history Denies any alcohol use Denies any illicit/recreational drug use REVIEW OF SYSTEMS: [As per ijiqnprh-ls-foq] Constitutional: Denies having fever, chills, night sweats, weight loss, headaches. Eyes: Denies blurry vision or double vision. ENT: Denies dysphagia, odynophagia, ear discharge. Cardiovascular: Denies chest pain or palpitations. Respiratory: Denies shortness of breath and cough. Gastrointestinal (GI): Denies nausea or vomiting. Genitourinary: Denies dysuria, hematuria. Musculoskeletal: Denies any muscle aches and pains. Skin: Denies any rashes or ulcers. Hematology/Oncology: Denies any easy bleeding or bruising. All other review of systems is negative. PHYSICAL EXAMINATION: General: Patient is awake, alert, oriented times 2, laying in bed , no apparent distress. Eyes: Conjunctiva clear, pupils equal round and reactive to light and accommodation. EOM full, Fundus: not visualized. ENT: Patient has hearing difficulty. No nasal deviation, oropharynx clear with no lesions/erythema. Cardiovascular: S1, S2, normal rhythm, no murmur. Respiratory: Chest is clear to auscultation bilaterally in upper lobes, noted mild crackles in bilateral lower lobes, No rhonchi, wheezes or rubs. Abdomen: Soft, bowel sounds positive, no bruits. Nontender on palpation. Extremities: No clubbing or cyanosis. No edema, no tenderness. 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 Cranial nerves III-XII grossly intact. Motor: Strength normal, patient moves all extremities. Sensory: grossly normal to touch. Imaging: Head CT on 03/25/2020, reported as: 1. No acute intracranial hemorrhage or acute territorial type infarct. 2. Mild hyperdensity of the left middle cerebral artery within the sylvian fissure, and thrombus cannot be excluded. This can be further evaluated with CTA. 3. There are scattered foci of white matter hypodensity, likely representing small vessel ischemic disease in a patient this age. 4. Midline deviation or shift to the left of approximately 7 mm visualized, although there is no significant mass effect upon the right lateral ventricle. 5. Mild atrophy. Asymmetric volume loss of the right cerebral hemisphere is visualized. 6. If further evaluation is clinically indicated, an MRI of the brain is recommended. Chest x-ray on 03/25/2020, reported as: Moderate cardiomegaly. No acute infiltration CT chest without contrast on 03/25/2020, reported as No evidence of pneumonia or CHF failure although they may be mild perihilar interstitial edema. Impression: 89-year-old female with HTN, DM 2, CK D3, CHF, A. fib, hypothyroidism, HDL who requires admission to the hospital for acute care to further evaluate and treat the acute onset of auditory and visual hallucinations. She was accompanied by her pukkxsqc-pb-bls and all the history was obtained from her and she denies any other acute changes, illnesses recently. In the ED patient did get head CT which recommended MRI given her changes in CT, but patient is agitated and claustrophobic and could not tolerate MRI at this point of time. Plan: Acute on chronic exacerbation of CHF: - Patient has mild crackles noted in the bilateral lungs. - Will start her on Lasix 20 mg IV daily. - Strict I's and O's Visual/ auditory hallucinations: - At this time not sure about the cause of her hallucination can be an acute event or can be due to dementia given her age. - Will try to get that MRI at some point during the admission. Unlikely UTI: - She did get UA done in ED which showed few WBC, but also squames. - Will wait for cultures to start on any antibiotics if needed. Diabetes mellitus type 2 - Patient's last HbA1c is 6.3 in June 2019 - Will keep her on insulin sliding scale. Hypertension: - Continue home medication. - Valsartan on 160 MG by mouth. - Amlodipine 10 mg by mouth. Hypothyroidism: - Continue home medication - Will continue levothyroxine 88 MCG A. fib: - Will continue home medication - Will continue bisoprolol 5 mg - She was not on anticoagulation as patient wished to avoid anticoagulation as per PCP. - She is on aspirin at home. Asthma: - Continue home inhalers - Will continue albuterol inhaler Esophageal stricture: - Will continue omeprazole 20 mg by mouth daily. Anxiety: -Will continue home paroxetine 20 MG daily DVT prophylaxis: - Lovenox 40 MG subcutaneous. Home Medications Scheduled Amlodipine Besylate (Amlodipine Besylate) 10 Mg Tablet, 10 MG PO DAILY, (Reported) Atorvastatin Calcium (Atorvastatin Calcium) 10 Mg Tablet, 10 MG PO DAILY, (Reported) Bisoprolol Fumarate (Bisoprolol Fumarate) 5 Mg Tablet, 2.5 MG PO DAILY, (Reported) Calcitriol (Calcitriol) 0.25 Mcg Capsule, 0.25 MG PO DAILY, (Reported) Celecoxib (Celecoxib) 200 Mg Capsule, 200 MG PO DAILY, (Reported) Levothyroxine Sodium (Levothyroxine Sodium) 88 Mcg Tablet, 88 MCG PO QAM, (Reported) Omeprazole (Omeprazole) 20 Mg Capsule.dr, 20 MG PO DAILY, (Reported) Paroxetine HCl (Paroxetine HCl) 20 Mg Tablet, 20 MG PO DAILY, (Reported) Potassium Chloride (Potassium Chloride) 20 Meq Tablet.er, 20 MG PO DAILY, (Reported) Torsemide (Torsemide) 20 Mg Tablet, 20 MG PO Q3RD, (Reported) Valsartan/Hydrochlorothiazide (Valsartan-Hctz 160-25 mg Tab) 1 Each Tablet, 1 TAB PO DAILY, (Reported) Scheduled PRN Albuterol Sulfate (Proair Hfa) 8.5 Gm Hfa.aer.ad, 2 PUFF PO Q4H PRN for SHORTNESS OF BREATH, (Reported) Miscellaneous Medications [med rec comment] , (Reported) unable to speak w/patient, daughter unsure of last doses Allergies Coded Allergies: No Known Allergies (Unverified , 03/25/20) A-FIB/CHADSVASC A-FIB History Current/History of A-Fib/PAF?: Yes Current PO Anticoag Therapy: No Vital Signs Vital Signs Date Time Temp Pulse Resp B/P (MAP) Pulse Ox O2 Delivery O2 Flow Rate FiO2 03/25/20 22:00 130 18 192/86 (121) 95 Room Air 03/25/20 15:50 98.8 Laboratory Data Labs 24H Laboratory Tests 2 03/25/20 17:18: Blood Gas Bicarbonate Standard 23.4, Venous Blood pH 7.330, Venous Blood Partial Pressure CO2 50.1H, Venous Blood Partial Pressure O2 47.2, Venous Blood Total Carbon Dioxide 27.4, Venous Blood HCO3 25.8, Venous Blood Oxygen Saturation 81.5H, Venous Blood Base Excess -0.8, Anion Gap 7L, Glomerular Filtration Rate 20.2L, Calcium Level 9.7, Total Bilirubin 0.7, Direct Bilirubin 0.2, Aspartate Amino Transf (AST/SGOT) 9, Alanine Aminotransferase (ALT/SGPT) 16, Alkaline Phosphatase 99, Ammonia 17, Total Creatine Kinase 46, Creatine Kinase MB 2.1, Creatine Kinase MB Relative Index 4.57H, Troponin I 0.18H, ZX-Zmc-H-Type Natriu retic Peptide 81252X, Total Protein 6.9, Albumin 3.0L, Albumin/Globulin Ratio 0.8L, Thyroid Stimulating Hormone (TSH) 5.240H, Free Thyroxine 1.24, Salicylates Level < 1.7L, Acetaminophen Level < 2.0L, Ethyl Alcohol Level < 0.003 03/25/20 17:19: Nucleated Red Blood Cells % (auto) 0.0 03/25/20 18:21: Urine Color (ISIAH) YELLOW, Urine Appearance (ISIAH) CLOUDYH, Urine pH (ISIAH) 6.0, Urine Specific [place] (ISIAH) 1.015, Bedside Urine Glucose (UA) 1+(100 MG/DL)H, Bedside Urine Ketones (LAB) NEGATIVE, Bedside Urine Blood POSITIVEH, Bedside Urine Nitrite (LAB) NEGATIVE, Bedside Urine Bilirubin (LAB) NEGATIVE, Bedside Urine Urobilinogen (LAB) NORMAL, Bedside Urine Leukocyte Esterase (L POSITIVEH, Urine Sediment Examination UNSPUN, Urine RBC 0-1, Urine WBC 5-7H, Urine Squamous Epithelial Cells MOD AMOUNTH, Urine Transitional Epithelial Cells SMALL AMOUNTH, Urine Bacteria NONE SEEN, Urine Hyaline Casts NONE SEEN CBC/BMP Laboratory Tests 03/25/20 17:18 03/25/20 17:19 Microbiology Microbiology 03/25/20 Urine Culture, Received Pending 03/25/20 Respiratory Virus Panel (PCR) (DAVID) - Final, Complete Plan / VTE VTE Prophylaxis Ordered?: Yes Attending Note Attending Note Family Medicine Attending Note: I was present on site to supervise Dr. Rasheed. We discussed the history and exam. I confirmed the gupta elements during my vmft-is-qttu encounter with the patient. We conferred on the assessment and plan; I agree with the note as documented. She does seem both dry and fluid overloaded. We are going to try to address the third spacing of fluid which I think may be the underlying cause of her delirium on dementia. Certainly there could be other causes will need to monitor her carefully. 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
[2020-03-25] MEDS: FUROSEMIDE 20MG/2ML VIAL (J1940) IV SCH (23:50)
[2020-03-26 01:00] LABS: AMPHETAMINES LEVEL URINE NEGATIVE (NEGATIVE); BARBITURATES URINE NEGATIVE (NEGATIVE); BENZODIAZEPINES URINE NEGATIVE (NEGATIVE); CANNABINOIDS URINE NEGATIVE (NEGATIVE); COCAINE METABOLITE URINE NEGATIVE (NEGATIVE); METHADONE URINE NEGATIVE (NEGATIVE); OPIATES URINE NEGATIVE (NEGATIVE); PHENCYCLIDINE URINE NEGATIVE (NEGATIVE)
[2020-03-26] MEDS ORDERED: LORazepam 2 MG/ML VIAL IV PRN ×2 (02:00→16:30)
[2020-03-26] MEDS ORDERED: LORazepam 2 MG/ML VIAL As Ordered ONE (02:02)
[2020-03-26 05:00] VITALS: BP 152/84
[2020-03-26] MEDS ORDERED: LEVOTHYROXINE 88MCG TABLET (0.088 MG) PO SCH (06:00)
[2020-03-26] MEDS: HumaLOG INSULIN (NovoLOG) PER UNIT SC SCH ×2 (07:30→12:00)
[2020-03-26 08:00] VITALS: BP 142/58
[2020-03-26] MEDS ORDERED: LORazepam 2 MG/ML VIAL IV ONE (08:00)
[2020-03-26] MEDS ORDERED: cefTRIAXone SOD 1 GM in D5W MINI-BAG PLUS 50 ML IV SCH (09:00)
[2020-03-26] MEDS ORDERED: VALSARTAN 80 MG TAB (DIOVAN) PO SCH (09:00)
[2020-03-26] MEDS ORDERED: DOCUSATE SODIUM 100MG CAPSULE PO SCH (09:00)
[2020-03-26] MEDS ORDERED: OMEPRAZOLE 20 MG CAP PO SCH (09:00)
[2020-03-26] MEDS ORDERED: ENOXAPARIN 40MG/0.4ML SYRINGE (J1650 PER 10MG) SC SCH (09:00)
[2020-03-26] MEDS ORDERED: ATORVASTATIN 10 MG TAB PO SCH (09:00)
[2020-03-26] MEDS ORDERED: CALCITRIOL 0.25 MCG CAP (S0169) PO SCH (09:00)
[2020-03-26] MEDS ORDERED: BISOPROLOL FUM 2.5 MG PER 1/2TAB PO SCH (09:00)
[2020-03-26] MEDS ORDERED: PARoxetine 20MG TABLET PO SCH ×2 (09:00)
[2020-03-26 09:23] LABS: HEMOGLOBIN 12.5 g/dl (12.0-15.5); MEAN CORPUSCULAR HEMOGLOBIN 30.9 pg (27.0-33.0); MEAN CORPUSCULAR HGB CONC 30.5 g/dl (32.0-36.5); MEAN CORPUSCULAR VOLUME 101.2 fl (80.0-96.0); PLATELET COUNT, AUTOMATED 219 10^3/uL (150-450); RED BLOOD COUNT 4.05 10^6/uL (4.00-5.40)
--- NOTE | 2020-03-26 09:50 | REP ---
INDICATION: AMS. COMPARISON: 03/25/2020. TECHNIQUE: CT BRAIN PERFORMED IN THE AXIAL PLANE. CORONAL RECONSTRUCTION IMAGES ARE PERFORMED. FINDINGS: The appearance of the brain is essentially unchanged compared to the prior study. No acute intracranial hemorrhage. Again there appear to be mild chronic small vessel ischemic changes in the periventricular white matter but no territorial infarct is seen. There is mild stable prominence of the ventricular system. Sulci of the right cerebral hemisphere are again more prominent than the left and there appears to be slight deviation of midline structures toward the left without mass effect, unchanged. Left middle cerebral artery again appears somewhat hyperdense as on prior study. Bone window examination is unchanged. IMPRESSION: Findings as discussed above are stable compared to the prior study of 03/25/2020. No acute intracranial hemorrhage. <Electronically signed by Maurice Orellana > 03/26/20 0946
[2020-03-26 10:00] LABS: CALCIUM LEVEL 8.8 MG/DL (8.8-10.2); CREATININE FOR GFR 2.36 MG/DL (0.55-1.30); GLOMERULAR FILTRATION RATE 20.6 (>32); MAGNESIUM LEVEL 2.1 MG/DL (1.8-2.4); POTASSIUM SERUM 4.1 MEQ/L (3.5-5.1); TROPONIN I 0.15 NG/ML (< 0.10)
[2020-03-26] MEDS: FUROSEMIDE 20MG/2ML VIAL (J1940) IV SCH (10:55)
[2020-03-26] MEDS ORDERED: HALOPERIDOL 5MG/ML VIAL (J1630 PER 1) IV PRN (11:15)
[2020-03-26 12:00] VITALS: BP 150/88
[2020-03-26] MEDS ORDERED: PANTOPRAZOLE 40MG VIAL (C9113 PER 1) IV SCH (12:00)
[2020-03-26] MEDS ORDERED: D5W 1,000 ML IV SCH (13:00)
[2020-03-26] MEDS ORDERED: HALOPERIDOL 5MG/ML VIAL (J1630 PER 1) IV ONE (13:00)
--- NOTE | 2020-03-26 15:17 | REPVR ---
PROCEDURE INFORMATION: Exam: MR Head Without Contrast Exam date and time: 03/26/2020 11:10 AM Age: 89 years old Clinical indication: Abnormal findings; Abnormal radiologic findings of head/skull; Not specified; Additional info: Midline shift, AMS TECHNIQUE: Imaging protocol: MR of the head without contrast. COMPARISON: CT Head without contrast 03/26/2020 9:26 AM FINDINGS: Brain: No acute infarct identified on the diffusion-weighted imaging. No parenchymal hemorrhage. Mildly prominent CSF signal intensity adjacent to the right coronal suture perhaps reflects an approximate 1.9 x 1.2 cm arachnoid cyst. No discrete masslike edema identified in the parenchyma. The brain demonstrates generalized volume loss. Patchy foci of increased signal intensity in the deep white matter most likely representing chronic small vessel ischemic change. Cerebral ventricles: The ventricles are mildly enlarged in keeping with volume loss. Bones/joints: Unremarkable. Paranasal sinuses: Normal as visualized. No acute sinusitis. Mastoid air cells: Nonspecific patchy left mastoid effusion. Orbital cavity: Unremarkable. Soft tissues: Unremarkable. IMPRESSION: 1. Images are motion degraded. 2. No acute intracranial abnormality seen. Electronically signed by: Elena Wylie On 03/26/2020 15:16:38 PM
[2020-03-26] MEDS ORDERED: ATROPINE SULFATE 1% OP SOLN 2 ML BTL SL PRN (16:30)
[2020-03-26] MEDS ORDERED: ONDANSETRON 4MG/2ML VIAL IV PRN (16:30)
[2020-03-26] MEDS ORDERED: MORPHINE 2 MG/ML 1ML VIAL (J2270) IV PRN (16:30)
--- NOTE | 2020-03-26 17:00 | IPNPDOC ---
Date Seen The patient was seen on 03/26/20. Progress Note SUBJECTIVE: Patient had repeat CT today which showed a 7 mm midline shift again, no change from admission. MRI of the brain was unremarkable for anything showing potential midline shift or other acute issues such as brain herniation. The patient was increasingly agitated and required 2 mg of IV Haldol to calm down prior to MRI. Curz catheter was placed. Creatinine was elevated, according to her healthcare proxy she has no documented chronic kidney disease and this may be acute. Cardiology assessed the patient and at this time is recommending no Lasix but to further observe. Heart rate had dropped into the high 30s but later passed back into the 90s. Blood pressures remain stable. Nephrology was consulted to see the patient early in the day for acute kidney injury. At 4 PM the patient's healthcare proxy (Ivana- [id number]) was updated and she was adamant about stopping all current treatments and wanted to take the patient home to keep her comfortable. I explained what this would mean: stopping all labs, imaging, adding additional medications outside of those for pain/comfort, consultation services. I also explained that currently she is very sick, stopping treatment in the hospital would mean worsening condition and likely down the line. It was explained that the patient is requiring 24/7 care and it would likely be a lot of work to take home without support from an outside agency (i.e Hospice or other) to help with supplies and also with medications needed to keep her comfortable. I explained to her that we have sr. social media & mobile manager trousseau consultant and they may be able to explain to her what is available to help family take the patient home on comfort measures only. Ivana agreed to allow PFS on-call to talk with her about their options on taking her home. PFS called me (Padmini) and we discussed the case, consult was placed. As confirmed with the healthcare proxy, she was made comfort measures only in our system. And also as discussed with HCP, she was started on morphine, ativan for pain, agitation. OBJECTIVE: PHYSICAL EXAMINATION from prior to haldol administration: GENERAL: Patient was agitated, mild tremoring at times, not staying awake and not oriented at all, could not tell us name, Eyes: Conjunctiva clear, pupils equal round and reactive to light and accommodation ENT: No nasal deviation, oropharynx clear with no lesions/erythema CVS: S1, S2, normal rhythm, no murmur. RESP: tachypneic, Chest is clear to auscultation bilaterally. No rhonchi, wheezes or rubs. GI: obese, soft, bowel sounds positive, no bruits. Nontender on palpation. EXT: No clubbing or cyanosis. No edema. Central nervous system (TAP PULLER): Not awake, alert or oriented. Cranial nerves III- XII unable to be tested. Reflexes wnl. LABORATORY: Please see below MICROBIOLOGY: Ucx pending IMAGING: MRI brain: Brain: No acute infarct identified on the diffusion-weighted imaging. No parenchymal hemorrhage. Mildly prominent CSF signal intensity adjacent to the right coronal suture perhaps reflects an approximate 1.9 x 1.2 cm arachnoid cyst. No discrete masslike edema identified in the parenchyma. The brain demonstrates generalized volume loss. Patchy foci of increased signal intensity in the deep white matter most likely representing chronic small vessel ischemic change. Cerebral ventricles: The ventricles are mildly enlarged in keeping with volume loss. Bones/joints: Unremarkable. Paranasal sinuses: Normal as visualized. No acute sinusitis. Mastoid air cells: Nonspecific patchy left mastoid effusion. Orbital cavity: Unremarkable. Soft tissues: Unremarkable. Head CT repeated 03/26/20: Findings as discussed above are stable compared to the prior study of 03/25/2020. No acute intracranial hemorrhage. Head CT on 03/25/2020, reported as: 1. No acute intracranial hemorrhage or acute territorial type infarct. 2. Mild hyperdensity of the left middle cerebral artery within the sylvian fissure, and thrombus cannot be excluded. This can be further evaluated with CTA. 3. There are scattered foci of white matter hypodensity, likely representing small vessel ischemic disease in a patient this age. 4. Midline deviation or shift to the left of approximately 7 mm visualized, although there is no significant mass effect upon the right lateral ventricle. 5. Mild atrophy. Asymmetric volume loss of the right cerebral hemisphere is vis ualized. 6. If further evaluation is clinically indicated, an MRI of the brain is recommended. Chest x-ray on 03/25/2020, reported as: Moderate cardiomegaly. No acute infiltration CT chest without contrast on 03/25/2020, reported as No evidence of pneumonia or CHF failure although they may be mild perihilar interstitial edema. 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 Acute metabolic encephalopathy likely 2/2 to worsening acute CHF exacerbation, UTI 2. Acute vs. acute on chronic kidney disease 3. Elevated troponin likely 2/2 to worsening CHF exacerbation 4. Bradycardia, intermittent 5. Left middle cerebral artery thrombus (could not be ruled out on CT), hx of atrial fib not anticoagulated 6. Anxiety with worsening agitation likely 2/2 to acute metabolic encephalopathy 7. UTI 8. DM type II 9. Hx of atrial fib, not on anticoagulation- currently NSR 10. Asthma 11. HTN 12. 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 F/u PFS conversation with family discussing discharge wishes. VS, I&O, 24H, Fishbone Vital Signs/I&O Vital Signs Date Time Temp Pulse Resp B/P (MAP) Pulse Ox O2 Delivery O2 Flow Rate FiO2 03/26/20 12:00 96.9 95 20 150/88 (108) 96 Nasal Cannula 2.0 I&O- Last 24 Hours up to 6 AM 03/26/20 06:00 Intake Total 600 ml Output Total 475 ml Balance 125 ml Laboratory Data 24H LABS Laboratory Tests 2 03/25/20 17:18: Blood Gas Bicarbonate Standard 23.4, Venous Blood pH 7.330, Venous Blood Partial Pressure CO2 50.1H, Venous Blood Partial Pressure O2 47.2, Venous Blood Total Carbon Dioxide 27.4, Venous Blood HCO3 25.8, Venous Blood Oxygen Saturation 81.5H, Venous Blood Base Excess -0.8, Anion Gap 7L, Glomerular Filtration Rate 20.2L, Calcium Level 9.7, Total Bilirubin 0.7, Direct Bilirubin 0.2, Aspartate Amino Transf (AST/SGOT) 9, Alanine Aminotransferase (ALT/SGPT) 16, Alkaline Phosphatase 99, Ammonia 17, Total Creatine Kinase 46, Creatine Kinase MB 2.1, Creatine Kinase MB Relative Index 4.57H, Troponin I 0.18H, MX-Yyx-J-Type Natriuretic Peptide 04777Y, Total Protein 6.9, Albumin 3.0L, Albumin/Globulin Ratio 0.8L, Thyroid Stimulating Hormone (TSH) 5.240H, Free Thyroxine 1.24, Salicylates Level < 1.7L, Acetaminophen Level < 2.0L, Ethyl Alcohol Level < 0.003 03/25/20 17:19: Nucleated Red Blood Cells % (auto) 0.0 03/25/20 18:21: Urine Color (ISIAH) YELLOW, Urine Appearance (ISIAH) CLOUDYH, Urine pH (ISIAH) 6.0, Urine Specific [place] (ISIAH) 1.015, Bedside Urine Glucose (UA) 1+(100 MG/DL)H, Bedside Urine Ketones (LAB) NEGATIVE, Bedside Urine Blood POSITIVEH, Bedside Urine Nitrite (LAB) NEGATIVE, Bedside Urine Bilirubin (LAB) NEGATIVE, Bedside Urine Urobilinogen (LAB) NORMAL, Bedside Urine Leukocyte Esterase (L POSITIVEH, Urine Sediment Examination UNSPUN, Urine RBC 0-1, Urine WBC 5-7H, Urine Squamous Epithelial Cells MOD AMOUNTH, Urine Transitional Epithelial Cells SMALL AMOUNTH, Urine Bacteria NONE SEEN, Urine Hyaline Casts NONE SEEN 03/26/20 05:26: Bedside Glucose (Misc Panel) 107 03/26/20 09:11: Nucleated Red Blood Cells % (auto) 0.0, Anion Gap 7L, Glomerular Filtration Rate 20.6L, Calcium Level 8.8, Magnesium Level 2.1, Troponin I 0.15H, CB-Lqc-N-Type Natriuretic Peptide 11814R 03/26/20 12:09: Bedside Glucose (Misc Panel) 106 03/26/20 12:17: Troponin I 0.16H CBC/BMP Laboratory Tests 03/25/20 17:18 03/25/20 17:19 03/26/20 09:11 Microbiology Microbiology 03/25/20 Urine Culture, Received Pending 03/25/20 Respiratory Virus Panel (PCR) (DAVID) - Final, Complete Galina Herbert MD Mar 26, 2020 17:00
--- NOTE | 2020-03-26 22:31 | CR ---
NEPHROLOGY CONSULTATION DATE: 03/26/2020 REQUESTING PHYSICIAN: Dr. Galina Herbert CONSULTING PHYSICIAN: Dr. Heidi Girard REASON FOR CONSULTATION: Management of acute renal failure and hypernatremia. CHIEF COMPLAINT: The patient was brought to the Emergency Room yesterday with altered mental status. HISTORY OF PRESENT ILLNESS: Note: History was obtained from the patient's chart and from the medical team. The patient herself is unable to provide any reliable history. Jyoti Jovel is an 89-year-old female with a past medical history of diabetes mellitus type 2, hypertension, chronic kidney disease, stage 3, congestive heart failure and atrial fibrillation. Multiple other comorbidities as mentioned below. She was brought to the Emergency Department by her [id number]. She was having hallucinations. She was saying things and she was telling that she is being attacked by someone. She was admitted under the Hospitalist Service with [id number] congestive heart failure exacerbation. She also had a CAT scan done with a midline shift on the imaging. Labs done on arrival showed that she had a creatinine of 2.4. Her baseline creatinine as per previous echos is 1.8. Nephrology Service was called for further help in the management of this patient. Of note, the patient was also found to have a sodium of 149 on labs today. The patient needed my immediate attention. I saw and evaluated the patient at the bedside. She was restless and there was no IV access available. Nursing Team was trying to place an IV line in one of the veins. She was not following commands when I saw her. PAST MEDICAL HISTORY: The patient's past medical history is significant for: 1. Chronic renal disease stage 3, baseline creatinine of 1.8. 2. Hypertension. 3. Diabetes mellitus type 2. 4. Congestive heart failure. 5. Atrial fibrillation. 6. Hyperlipidemia. 7. Hypothyroidism. 8. Psoriasis. 9. Asthma. 10. History of stricture of the esophagus - status post dilatation. 11. Osteoarthritis. 12. Anxiety disorder. PAST SURGICAL HISTORY: The patient's past surgical history is significant for 1. Status post appendectomy at age 16. 2. Breast lumpectomy at age 20. 3. Status post hysterectomy. 4. Partial bowel resection for adhesions in the past. 5. Ovarian surgery in the past and esophageal dilatation after. 6. Endoscopy in 1997. FAMILY HISTORY: No significant family history of end-stage renal disease requiring hemodialysis. SOCIAL HISTORY: There is no significant history of illicit drug abuse or alcohol abuse. REVIEW OF SYSTEMS: The patient was unable to provide any reliable review of systems. She was restless and agitated and had closed eyes. PHYSICAL EXAMINATION: GENERAL APPEARANCE: The patient is awake but agitated. VITAL SIGNS: Temperature is 96.9 degrees Fahrenheit, blood pressure 150/88, pulse is 95, respiratory rate of 20, saturating 96% on nasal cannula at 2 liters. HEAD AND NECK: The patient's eyes are closed but pupils are equally round and reactive to light. Mucous membranes are dry. Neck is supple. I could not appreciate any jugular venous distention. CARDIOVASCULAR: S1, S2, regular rate. EXTREMITIES: No edema of the bilateral lower extremities. RESPIRATORY: The patient was unable to sit up, but whatever respiratory exam I could do, I could not appreciate any crackles or wheezes or rhonchi. ABDOMEN: Soft, obese. She had tenderness in the suprapubic region. There was an old surgical scar in the suprapubic region. GENITOURINARY: Bedside bladder scan was done and there was more than 300 mL of postvoid residual. MUSCULOSKELETAL: No clubbing, no cyanosis. Pulses are 2+. AIRPORT PLANNER: The patient is agitated and moving extremities, not following commands. LABORATORY REVIEW: CBC showed a WBC of 8. It was 10.1 yesterday. Hemoglobin 12.5, platelet count 219. Urinalysis done yesterday showed it was cloudy, positive blood, positive leukocyte esterase and about 5 to 7 WBCs. VBG done yesterday showed a pH of 7.30. BMP showed sodium 149, potassium 4.9, chloride 115, bicarbonate 27, BUN 26, creatinine is 2.3. Glucose is 98, calcium is 8.8, magnesium is 2.1. Troponin is 0.15. BNP is 23,290. Microbiology: Respiratory viral panel is negative. Urine culture is pending. IMAGING DATA: MRI of the brain was done which showed motion artifact. CT of the head was done today which showed no acute intracranial hemorrhage, mild chronic small vessel ischemic changes in the periventricular white matter, mild stable prominence of the ventricular system, sulci of the right cerebral hemisphere are more prominent than the left and appears to be slight division of the midline structures towards the left without mass effect. A CT of the chest was done which showed no evidence of pneumonia or congestive heart failure, mild perihilar interstitial edema. CURRENT INPATIENT MEDICATIONS: The patient's medications were all reviewed by me. She was getting IV Ceftriaxone. She was getting Tylenol, Mylanta, Amlodipine 10 mg daily, Lipitor 10 mg q. h.s., Zebeta 2.5 mg p.o. daily, Calcitriol 0.25 mcg p.o. daily, Colace 100 mg p.o. twice daily, Lovenox 40 mg subcutaneously daily, Lasix 20 mg IV daily, Haldol one mg IV q. 6 hours p.r.n. for agitation, insulin Lispro sliding scale, Levothyroxine 88 mcg p.o. daily, Ativan p.r.n. for agitation, Milk of Magnesia daily, Morphine 2 mg IV p.r.n. for severe pain, Prilosec 20 mg p.o. daily, Zofran p.r.n., Protonix 40 mg IV daily, Paroxetine 20 mg p.o. daily. Valsartan 160 mg p.o. daily. ASSESSMENT AND PLAN: 1. Acute renal failure superimposed on chronic kidney disease The patient's bedside bladder scan was done. It looks like she is in retention at this time. Cruz catheter placement was ordered, IV fluid hydration has also been ordered since the patient has hypernatremia. No evidence of urinary tract infection on urinalysis, however urine culture is pending. The patient is already on IV antibiotics. 2. Hypernatremia it is secondary to the use of diuretics and inability of the patient to take oral liquids. She has been started on IV d5w. She has about 2 liters of free water deficit. 3. History of congestive heart failure on clinical exam the patient looks dry to me and she does need free water at this time. Hold the diuretics for now. Continue d5w. 4. History of hypertension avoid the use of julissa inhibitors or angiotensin receptor blockers at this time because of acute renal failure. Okay to continue beta blockers and Amlodipine. 5. Secondary hyperparathyroidism - continue current dose of Calcitriol 0.25 mg p.o. daily. 6. Metabolic encephalopathy less likely that this degree of renal failure and hypernatremia would cause encephalopathy. Most likely there is some central cause as well. 7. The rest of the workup and management is as per the Medical Team. Thank you for involving me in the care of this patient. I should be happy to follow the patient along with you tomorrow morning.
[2020-03-27] MEDS ORDERED: BISOPROLOL FUM 2.5 MG PER 1/2TAB PO SCH (09:00)
[2020-03-27] MEDS ORDERED: ALBUTEROL 90 MCG/ACT 8GM HFA INHALER INH PRN (10:00)
--- NOTE | 2020-03-27 13:04 | ECGEPIP ---
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
[2020-03-27] MEDS: CALCITRIOL 0.25 MCG CAP (S0169) PO SCH (13:08)
[2020-03-27] MEDS: OMEPRAZOLE 20 MG CAP PO SCH (13:08)
[2020-03-27] MEDS: ATORVASTATIN 10 MG TAB PO SCH (13:09)
[2020-03-27] MEDS: LEVOTHYROXINE 88MCG TABLET (0.088 MG) PO SCH (13:09)
[2020-03-27] MEDS: PARoxetine 20MG TABLET PO SCH (13:10)
[2020-03-27 14:00] VITALS: BP 120/66
--- NOTE | 2020-03-27 14:49 | IPNPDOC ---
Date Seen The patient was seen on 03/27/20. Progress Note SUBJECTIVE: patient awake, alert, hard of hearing but oriented x 2 (not to place or events since admission). Took restraints off, started diet. Updated family and discussed current level of care again with Ivana, HCP and [id number]. Decision was made by family to switch back to DNR/DNI but NO labs, consultation services, imaging with goal to get her home as soon as safe. Patient's HCP wished for her to resume her prior home meds if able. Patient denies chest pain, shortness of breath. OBJECTIVE: PHYSICAL EXAMINATION: GENERAL: Laying in bed, awake, alert and oriented x 2. Very hard of hearing Eyes: Conjunctiva clear, pupils equal round and reactive to light and accommodation ENT: No nasal deviation, oropharynx clear with no lesions/erythema CVS: S1, S2, normal rhythm, no murmur. RESP: Chest is clear to auscultation bilaterally. No rhonchi, wheezes or rubs. GI: Obese, soft, bowel sounds positive, no bruits. Nontender on palpation. EXT: No clubbing or cyanosis. No edema. Central nervous system (GAMEPLAY ENGINEER): CN2-12 intact, no focal deficits PSYCH: Mood and affect appropriate LABORATORY: No new labs MICROBIOLOGY: Ucx: NG IMAGING: MRI brain: Brain: No acute infarct identified on the diffusion-weighted imaging. No parenchymal hemorrhage. Mildly prominent CSF signal intensity adjacent to the right coronal suture perhaps reflects an approximate 1.9 x 1.2 cm arachnoid cyst. No discrete masslike edema identified in the parenchyma. The brain demonstrates generalized volume loss. Patchy foci of increased signal intensity in the deep white matter most likely representing chronic small vessel ischemic change. Cerebral ventricles: The ventricles are mildly enlarged in keeping with volume loss. Bones/joints: Unremarkable. Paranasal sinuses: Normal as visualized. No acute sinusitis. Mastoid air cells: Nonspecific patchy left mastoid effusion. Orbital cavity: Unremarkable. Soft tissues: Unremarkable. Head CT repeated 03/26/20: Findings as discussed above are stable compared to the prior study of 03/25/2020. No acute intracranial hemorrhage. Head CT on 03/25/2020, reported as: 1. No acute intracranial hemorrhage or acute territorial type infarct. 2. Mild hyperdensity of the left middle cerebral artery within the sylvian fissure, and thrombus cannot be excluded. This can be further evaluated with CTA. 3. There are scattered foci of white matter hypodensity, likely representing small vessel ischemic disease in a patient this age. 4. Midline deviation or shift to the left of approximately 7 mm visualized, although there is no significant mass effect upon the right lateral ventricle. 5. Mild atrophy. Asymmetric volume loss of the right cerebral hemisphere is visualized. 6. If further evaluation is clinically indicated, an MRI of the brain is recommended. Chest x-ray on 03/25/2020, reported as: Moderate cardiomegaly. No acute infiltration CT chest without contrast on 03/25/2020, reported as No evidence of pneumonia or CHF failure although they may be mild perihilar interstitial edema. 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 Acute metabolic encephalopathy likely 2/2 to worsening acute CHF exacerbation, hypernatremia. MRI confirmed no midline shift, no focal deficits to indicate CVA. BNP increased on prior labs. Stopped doing all labs so was unable to follow up on these causes. Holding ARB, ACEi and torsemide for now. Echocardiogram cancelled. 2. JODEE on chronic kidney disease likely 2/2 to urinary retention, dehydration. Cruz catheter in place. Holding diuretics, encouraging PO intake. Unable to start D5W and levels cannot be checked and OVERCORRECTION is also very dangerous with free water. Can encourage fluids Q2H by nursing. 3. Elevated troponin likely 2/2 to worsening CHF exacerbation. ECG did not show HI, old findings. See above 4. Bradycardia, intermittent- No longer on tele. Holding home meds. 5. Left middle cerebral artery thrombus (could not be ruled out on CT), hx of atrial fib not anticoagulated. Per HCP, no additional testing is wanted. Not safe to start anticoagulation on patient without knowing current labs, including renal and hepatic levels as these elevated can cause incr risk of bleeding. 6. Hypernatremia, acute and likely 2/2 to use of diuretics and inability of patient to take fluids. Unable to start D5W and levels cannot be checked and OVERCORRECTION is also very dangerous with free water. 7. DM type II. No longer checking labs, encourage eating when possible. No re strictions at this time as blood sugars were low yesterday. 9. Hx of atrial fib, not on anticoagulation previously. C/w Bisoprolol, amlodipine. 10. Asthma. Albuterol PRN. 11. HTN. BP 170's systolic today. Resumed BB, CCB, holding off on ACEi, ARB and diuretics currently. Can restart torsemide on 03/30/20 per nephrology. 12. Hypothyroidism. c/w home med 13. DVT px. Heparin SC. DISPOSITION: Switched from CASE PACKER AND SEALER to DNR/DNI status again today. Family does not want labs, tests, consultations but just wants prior meds resumed and discharged home as soon as safe to do so. PT/OT ordered. VS, I&O, 24H, Fishbone Vital Signs/I&O Vital Signs Date Time Temp Pulse Resp B/P (MAP) Pulse Ox O2 Delivery O2 Flow Rate FiO2 03/27/20 13:06 62 175/76 03/27/20 11:30 2.0 03/26/20 12:00 96.9 20 96 Nasal Cannula I&O- Last 24 Hours up to 6 AM 03/27/20 06:00 Intake Total 60 ml Output Total 50 ml Balance 10 ml Laboratory Data 24H LABS Laboratory Tests 2 03/26/20 18:21: Urine Opiates Screen NEGATIVE, Urine Methadone Screen NEGATIVE, Urine Barbiturates Screen NEGATIVE, Urine Phencyclidine Screen NEGATIVE, Urine Amphetamines Screen NEGATIVE, Urine Benzodiazepines Screen NEGATIVE, Urine Cocaine Metabolite Screen NEGATIVE, Urine Cannabinoids Screen NEGATIVE Microbiology Microbiology 03/25/20 Urine Culture - Final, Complete 03/25/20 Respiratory Virus Panel (PCR) (DAVID) - Final, Complete Current Medications Current Medications Medications (Trade) Dose Ordered Sig/Hazel Route PRN Reason Start Time Stop Time Status Last Admin Dose Admin Acetaminophen (Tylenol Tab) 650 mg Q4H PRN PO PAIN OR FEVER 03/25/20 21:30 03/26/20 16:26 DC Al Hydrox/Mg Hydrox/Simethicone (Mylanta) 30 ml DAILY PRN PO DYSPEPSIA 03/25/20 21:30 03/26/20 11:20 DC Albuterol Sulfate (Proventil, Ventolin Hfa) 2 puff Q4H PRN INH SHORTNESS OF BREATH 03/25/20 21:30 03/26/20 16:26 DC Albuterol Sulfate (Proventil, Ventolin Hfa) 2 puff Q4HP PRN INH SHORTNESS OF BREATH 03/27/20 10:00 Amlodipine Besylate (Norvasc) 2.5 mg DAILY PO 03/27/20 09:00 03/27/20 13:06 Amlodipine Besylate (Norvasc) 10 mg DAILY PO 03/26/20 09:00 03/26/20 08:53 DC Atorvastatin Calcium (Lipitor) 10 mg DAILY PO 03/26/20 09:00 03/26/20 11:20 DC Atorvastatin Calcium (Lipitor) 10 mg DAILY PO 03/27/20 09:00 03/27/20 13:09 Atropine Sulfate (Isopto Atropine 1%) 1 drop Q2HP PRN SL TERMINAL SECRETIONS 03/26/20 16:30 Bisoprolol Fumarate (Zebeta) 2.5 mg DAILY PO 03/26/20 09:00 03/26/20 08:53 DC Bisoprolol Fumarate (Zebeta) 2.5 mg DAILY PO 03/27/20 09:00 03/27/20 13:06 Calcitriol (Rocaltrol) 0.25 mcg DAILY PO 03/26/20 09:00 03/26/20 11:20 DC Calcitriol (Rocaltrol) 0.25 mcg DAILY PO 03/27/20 09:00 03/27/20 13:08 Ceftriaxone Sodium 1 gm/ Dextrose 50 ml @ 100 mls/hr Q24H IV 03/26/20 09:00 03/26/20 16:26 DC 03/26/20 10:55 Dextrose (Dextrose 50%) 25 ml ASDIRECTED PRN IV SEE LABEL COMMENTS 03/25/20 22:45 03/26/20 16:26 DC Dextrose/Water 1,000 ml @ 75 mls/hr [id number] IV 03/26/20 13:00 03/26/20 16:26 DC 03/26/20 15:07 Docusate Sodium (Colace) 100 mg BID PO 03/26/20 09:00 03/26/20 11:20 DC Enoxaparin Sodium (Lovenox) 40 mg DAILY SC 03/26/20 09:00 03/26/20 16:26 DC 03/26/20 10:56 Furosemide (LASIX injection) 20 mg DAILY IV 03/25/20 21:30 03/26/20 11:20 DC 03/26/20 10:55 Glucagon (Glucagon) 1 mg ASDIRECTED PRN SC SEE LABEL COMMENTS 03/25/20 22:45 03/26/20 16:26 DC Glucose (Glucose) 16 GM ASDIRECTED PRN PO SEE LABEL COMMENTS 03/25/20 22:45 03/26/20 16:26 DC Haloperidol (Haldol) 1 mg Q6HP PRN IV AGITATION 03/26/20 11:15 03/26/20 16:26 DC 03/26/20 11:57 Home Med (Med Rec Complete!) ASDIRECTED XX 03/25/20 19:30 03/25/20 19:28 DC Insulin Human Lispro (HumaLOG INSULIN) See Protocol Table AC SC 03/26/20 07:30 03/26/20 16:26 DC Insulin Human Lispro (HumaLOG INSULIN) See Protocol Table QHS SC 03/25/20 21:00 03/26/20 16:26 DC Levothyroxine Sodium (Synthroid) 88 mcg DAILY@06 PO 03/27/20 06:00 03/27/20 13:09 Levothyroxine Sodium (Synthroid) 88 mcg QAM@0600 PO 03/26/20 06:00 03/26/20 11:20 DC Lorazepam (Ativan) 1 mg Q1HP PRN IV ANXIETY/AGITATION 03/26/20 02:00 03/26/20 07:54 DC 03/26/20 02:05 Lorazepam (Ativan) 1 mg Q2HP PRN IV ANXIETY 03/26/20 16:30 Magnesium Hydroxide (Milk Of Magnesia) 30 ml DAILY PRN PO CONSTIPATION 03/25/20 21:30 03/26/20 11:20 DC Morphine Sulfate (Morphine Sulfate Inj) 2 mg Q2H PRN IV SEVERE PAIN (PS 8-10) 03/26/20 16:30 Omeprazole (PriLOSEC) 20 mg DAILY PO 03/26/20 09:00 03/26/20 11:20 DC Omeprazole (PriLOSEC) 20 mg DAILY PO 03/27/20 09:00 03/27/20 13:08 Ondansetron HCl (ZOFRAN INJection) 4 mg Q6HP PRN IV NAUSEA OR VOMITING 03/26/20 16:30 Pantoprazole Sodium (Protonix) 40 mg Q24H IV 03/26/20 12:00 03/26/20 16:26 DC 03/26/20 15:07 Paroxetine HCl (PAXil) 20 mg DAILY PO 03/26/20 09:00 03/26/20 11:20 DC Paroxetine HCl (PAXil) 20 mg DAILY PO 03/26/20 09:00 Cancel Paroxetine HCl (PAXil) 20 mg DAILY PO 03/27/20 09:00 03/27/20 13:10 Sodium Chloride 1,000 ml @ 200 mls/hr Q5H IV 03/25/20 18:30 03/25/20 23:05 DC 03/25/20 18:35 Torsemide (Demadex) 20 mg Q72H PO 03/28/20 09:00 Valsartan (Diovan) 160 mg DAILY PO 03/26/20 09:00 03/26/20 11:20 DC Allergies Coded Allergies: No Known Allergies (Unverified , 03/25/20) Galina Herbert MD Mar 27, 2020 14:48
--- NOTE | 2020-03-27 15:51 | CR ---
CONSULTATION DATE: 03/26/2020 REFERRING PHYSICIAN: Dr. Herbert INDICATION: Bradycardia. HISTORY OF PRESENT ILLNESS: Mrs. Jovel is previously unknown to me. She presented to [facility] yesterday evening after her family brought her in due to confusion and hallucinations. Apparently these problems have been present for approximately a week. She was admitted after initial blood work revealed a markedly elevated BMP and she had also trivial troponin elevation. Neuro imaging revealed suspicion for midline shift and possible MCA infarction but she did not have any localizing signs. I was asked to see her this morning because while being monitored on telemetry, her heart rate was dropping into high 30s. The lowest I could find was 38 beats per minute, sinus bradycardia. She did not seem to be symptomatic from it. She was never hypotensive but obviously due to her mental status, she probably would not be able to report any symptoms anyhow. I am unable to obtain any history from the patient but based on records from the computer, she has a history of diastolic congestive heart failure that was diagnosed earlier in 2019 and she has a history of paroxysmal atrial fibrillation with no anticoagulation which was felt to be too high of a risk. I am unable to make a judgment what is her baseline status. PAST MEDICAL HISTORY: 1. Atrial fibrillation as above. 2. Hypertension. 3. Type 2 diabetes. 4. Chronic renal insufficiency with baseline creatinine around 2. 5. Chronic diastolic congestive heart failure. 6. Hypercholesterolemia. 7. Hypothyroidism. 8. Psoriasis. 9. Asthma. 10. History of esophageal stricture. 11. Degenerative joint disease. 12. Anxiety. SURGICAL HISTORY: 1. Appendectomy. 2. Lumpectomy. 3. Hysterectomy. 4. Bowel resection for adhesions. 5. Ovarian surgery. 6. Esophageal dilatation. SOCIAL HISTORY: There is no history of smoking or alcohol. She lives with her son and [id number]. FAMILY HISTORY: Unable to obtain, probably not relevant in this setting. OUTPATIENT MEDICATIONS: 1. Albuterol as needed. 2. Amlodipine 10 mg a day. 3. Atorvastatin 10 mg a day. 4. Bisoprolol 2.5 mg a day. 5. Calcitriol 0.25 mg a day. 6. Celocoxib 200 mg a day. 7. Levothyroxine 88 mcg a day. 8. Omeprazole 20 mg daily. 9. Paroxetine 20 mg daily. 10. Potassium 20 mg daily. 11. Torsemide 20 mg every third day. 12. Valsartan/HCTZ 160/25 mg daily. It is not completely clear when her last administered dose was. REVIEW OF SYSTEMS: Unable to obtain due to patient's condition. PHYSICAL EXAMINATION: Mrs. Jovel is an elderly, obese female. When I was examining her, she was in the PCU lying actually in slightly Trendelenburg position without any obvious distress. She seems to be moaning slightly. When approached and asked very loudly, she would answer questions inappropriately, does not seem to be oriented even x1 but she is certainly alert and she moves all four extremities. I did not appreciate any focal neurologic deficit. Vital signs: Blood pressure 142/58. Heart rate from low 30s earlier this morning to currently 90s, sinus rhythm with frequent atrial ectopy at times. I cannot even rule out that there are times when she is in atrial fibrillation based on somewhat limited monitoring. Saturation is 97% on two liters of oxygen via nasal canula. Her weight was recorded as 81.8 kilograms. Her JVP does not look very high. Lungs are reasonably clear. I do not appreciate any crackles, wheezing or rhonchi. Heart exam reveals regular rhythm without gallop, rub or murmur. Abdomen is soft, no apparent guarding. Bowel sounds are present. Extremities are free of edema. Peripheral pulses are palpable. Neurologic exam as above. LABORATORY DATA: As of today, she has normal CBC. Basic metabolic panel revealed a sodium of 149, potassium 4.1, BUN 26, creatinine 2.36, for GFR 20 and glucose 98. It appears that her baseline GFR is between 20 and 27. Liver function tests are normal. Troponin is marginally elevated on admission, 0.18, has been dropping since. [id number] is 23,000 today, was about 19,000 yesterday and 6000 in November but then her creatinine clearance was 27 as opposed to 20 today. Last TSH from yesterday was 5.2. ABGs are relatively unremarkable. Tox screen is pending. Urinalysis was suggestive of UTI. She had a head CT yesterday as well as today. There is generalized atrophy as expected for age and there is a subtle shift towards the left and there is suggestion of hyperdensity in the left middle cerebral artery distribution suggestive of possibly early infarct. An electrocardiogram performed yesterday reveals presence of sinus rhythm with ventricular rate of 65 beats per minute and poor R wave progression. It is a poor quality EKG with very poor quality of baseline but even though the study was interpreted as atrial fibrillation, the rate appears mostly regular even though there are probably ectopic beats. Chest x-ray reveals cardiomegaly but I do not appreciate any distinct evidence for pleural effusion or congestive heart failure. ASSESSMENT AND PLAN: Mrs. Jovel is an 89-year-old female who has a history of paroxysmal atrial fibrillation who presents with confusion and hallucinations for about a week. There is question veena whether she might have a stroke even though I do not appreciate any distinct localizing or focal neurologic signs. I was originally called because of bradycardia which since has resolved. It was sinus bradycardia possibly related to the fact that she got some sedation for agitation yesterday combined with her chronic beta tony. Just by holding bisoprolol, the heart rate seems to have accelerated. I do not think that this will require any further treatment or evaluation. More concerning on my part is the issue of neurologic status. I am not exactly sure what is the underlying etiology. I think it would be worthwhile that she is seen by neurology in person for proper evaluation. She certainly is at high risk for ischemic stroke due to what appears to be paroxysmal atrial fibrillation (even though the admission EKG is somewhat questionable as far as the underlying rhythm is concerned, she subsequently has clearly documented sinus rhythm by telemetry strips). Even though she was deemed to be too high risk for chronic anticoagulation, I am not completely clear what this decision was based on. I did not find any history of GI bleeding or recurrent falls in her history. I spoke with Dr. Herbert and it would be my suggestion after discussing this with neurology that she is started on anticoagulation, in early phase, probably best on heparin or Lovenox. In longer horizon, we can give her oral anticoagulants. The next question is that of congestive heart failure. Even though her BMP is extremely elevated, it is difficult to interpret in the setting of very low GFR and advanced age. I do not appreciate any evidence of for congestion by physical exam and because she very likely will have very limited oral intake for the next possibly even several days until her mental status hopefully will improve. My suggestion would be to hold the diuretics and use them only on as needed basis depending on evaluation of her clinical status. The patient is 89-year-old, DNI/DNR, has advanced renal dysfunction and congestive heart failure. Consequently even though I am not familiar with her baseline condition, I believe that we should limit the invasiveness of our measures to supportive care. I am not convinced that pursuing further aggressive evaluation will be to the benefit of the patient. MTDD
[2020-03-27] MEDS: HEPARIN SOD (PORCINE) 5000UNITS/ML 1ML VIAL/SYRINGE SQ SCH (20:53)
[2020-03-27 22:00] VITALS: BP 133/63
[2020-03-28] MEDS: LEVOTHYROXINE 88MCG TABLET (0.088 MG) PO SCH (05:12)
[2020-03-28 06:00] VITALS: BP 124/69
[2020-03-28] MEDS: ATORVASTATIN 10 MG TAB PO SCH (08:14)
[2020-03-28] MEDS: CALCITRIOL 0.25 MCG CAP (S0169) PO SCH (08:14)
[2020-03-28] MEDS: OMEPRAZOLE 20 MG CAP PO SCH (08:14)
[2020-03-28 08:15] VITALS: BP 124/69
[2020-03-28] MEDS: HEPARIN SOD (PORCINE) 5000UNITS/ML 1ML VIAL/SYRINGE SQ SCH (08:15)
[2020-03-28] MEDS: PARoxetine 20MG TABLET PO SCH (08:15)
[2020-03-28] MEDS ORDERED: BISOPROLOL FUM 2.5 MG PER 1/2TAB PO SCH (09:00)
[2020-03-28] MEDS ORDERED: TORSEMIDE 20 MG TAB PO SCH (09:00)
[2020-03-28 14:00] VITALS: BP 110/47
--- NOTE | 2020-03-28 15:10 | DS.PDOC ---
Discharge Summary General Date of Admission Mar 25, 2020 at 20:30 Date of Discharge 03/28/20 Attending Physician: Galina Herbert MD Discharge Summary HPI HOSPITAL COURSE: 89-year-old female with HTN, DM 2, CKD 3, CHF, A. fib, HDL, hypothyroidism, asthma, psoriasis was brought into the emergency department on 03/25/20 accompanied by her utynpcej-is-tor as patient was having hallucinations and se eing and hearing things since one week. Patient is hard of hearing and most of the history was given by her [id number]. She reports patient was seeing things and thought she was being attacked or there was shooting for the last week. She was brought in today as today she agreed to go to the hospital. [id number] reports she has on and off appetite. Denies having any fever, chills, recent viral infections, fall, injury to head, denies any bowel or bladder incontinence. Patient was admitted for CHF exacerbation, altered mental status, abnormal CT head r/o CVA vs. other brain abnormality On 03/26/20, patient had repeat CT day after admission which showed a 7 mm midline shift again, no change from admission. MRI of the brain was unremarkable for anything showing potential midline shift or other acute issues such as brain herniation. The patient was increasingly agitated and required 2 mg of IV Haldol to calm down prior to MRI. Cruz catheter was placed. Creatinine was elevated, according to her healthcare proxy she has no documented chronic kidney disease and this may be acute. Cardiology assessed the patient and was recommending no Lasix but to further observe. Heart rate had dropped into the high 30s but later passed back into the 90s. Blood pressures remain stable. Nephrology was consulted to see the patient early in the day for acute kidney injury. At 4 PM the patient's healthcare proxy (Ivana- [id number]) was updated and she was adamant about stopping all current treatments and wanted to take the patient home to keep her comfortable. I explained what this would mean: stopping all labs, imaging, adding additional medications outside of those for pain/comfort, consultation services. I also explained that currently she is very sick, stopping treatment in the hospital would mean worsening condition and likely down the line. It was explained that the patient is requiring 24/7 care and it would likely be a lot of work to take home without support from an outside agency (i.e Hospice or other) to help with supplies and also with medications needed to keep her comfortable. I explained to her that we have health care social worker applications engineering manager and they may be able to explain to her what is available to help family take the patient home on comfort measures only. Ivana agreed to allow PFS on-call to talk with her about their options on taking her home. PFS called me (Padmini) and we discussed the case, consult was placed. As confirmed with the healthcare proxy, she was made comfort measures only in our system. And also as discussed with HCP, she was started on morphine, ativan for pain, agitation. On 03/27/20, patient was awake, alert, hard of hearing but oriented x 2 (not to place or events since admission). Took restraints off, started diet. Updated family and discussed current level of care again with Ivana, HCP and [id number]. Decision was made by family to switch back to DNR/DNI but NO l abs, consultation services, imaging with goal to get her home as soon as safe. Patient's HCP wished for her to resume her prior home meds if able. Patient denies chest pain, shortness of breath. I reached out to nephrology and they recommended not to restart ARB combo med but torsemide Q3 days. On 03/28/20 patient was more awake and alert, standing and pivoting. Family again reiterated that they would provide 24/7 care to bring patient home. Discharge was done. She is advised to follow up with primary care provider if they wish. We have stopped several medications at discharge which are noted. Goal is Certified Home Health Referral and 24/7 care by family. Home Hospice referral will be offered at discharge, as family did not wish to make LINE OUT MAN at this time despite not wishing to have labs, etc. At time of discharge, patient denies chest pain, n/v/d. PHYSICAL EXAMINATION: GENERAL: Laying in bed, awake, alert and oriented x 2. Very hard of hearing Eyes: Conjunctiva clear, pupils equal round and reactive to light and accommodation ENT: No nasal deviation, oropharynx clear with no lesions/erythema CVS: S1, S2, normal rhythm, no murmur. RESP: Chest is clear to auscultation bilaterally. No rhonchi, wheezes or rubs. GI: Obese, soft, bowel sounds positive, no bruits. Nontender on palpation. EXT: No clubbing or cyanosis. No edema. Central nervous system (GLASS CURVATURE GAUGER): CN2-12 intact, no focal deficits PSYCH: Mood and affect appropriate LABORATORY: No new labs MICROBIOLOGY: Ucx: NG IMAGING: MRI brain: Brain: No acute infarct identified on the diffusion-weighted imaging. No parenchymal hemorrhage. Mildly prominent CSF signal intensity adjacent to the right coronal suture perhaps reflects an approximate 1.9 x 1.2 cm arachnoid cyst. No discrete masslike edema identified in the parenchyma. The brain demonstrates generalized volume loss. Patchy foci of increased signal intensity in the deep white matter most likely representing chronic small vessel ischemic change. Cerebral ventricles: The ventricles are mildly enlarged in keeping with volume loss. Bones/joints: Unremarkable. Paranasal sinuses: Normal as visualized. No acute sinusitis. Mastoid air cells: Nonspecific patchy left mastoid effusion. Orbital cavity: Unremarkable. Soft tissues: Unremarkable. Head CT repeated 03/26/20: Findings as discussed above are stable compared to the prior study of 03/25/2020. No acute intracranial hemorrhage. Head CT on 03/25/2020, reported as: 1. No acute intracranial hemorrhage or acute territorial type infarct. 2. Mild hyperdensity of the left middle cerebral artery within the sylvian fissure, and thrombus cannot be excluded. This can be further evaluated with CTA. 3. There are scattered foci of white matter hypodensity, likely representing small vessel ischemic disease in a patient this age. 4. Midline deviation or shift to the left of approximately 7 mm visualized, although there is no significant mass effect upon the right lateral ventricle. 5. Mild atrophy. Asymmetric volume loss of the right cerebral hemisphere is visualized. 6. If further evaluation is clinically indicated, an MRI of the brain is recommended. Chest x-ray on 03/25/2020, reported as: Moderate cardiomegaly. No acute infiltration CT chest without contrast on 03/25/2020, reported as No evidence of pneumonia or CHF failure although they may be mild perihilar interstitial edema. CURRENT DIAGNOSES at time made LINE OUT MAN: 1. Acute metabolic encephalopathy likely 2/2 to worsening acute CHF exacerbation, hypernatremia- resolved. MRI confirmed no midline shift, no focal deficits to indicate CVA. BNP increased on prior labs. Stopped doing all labs so was unable to follow up on these causes. Holding ARB, ACEi. Restarting torsemide on 03/30/20 per nephrology suggestions . Echocardiogram cancelled. 2. JODEE on chronic kidney disease likely 2/2 to urinary retention, dehydration. Cruz catheter in place, to be d/hollie. Holding diuretics, encouraging PO intake. Can encourage fluids Q2H by nursing. HOlding ARB/ACEi on discharge. torsemide to restart on 03/30/20. 3. Elevated troponin likely 2/2 to worsening CHF exacerbation. ECG did not show TX, old findings. See above 4. Bradycardia, intermittent-Resolved. No longer on tele. C/w home meds CCB and BB 5. Left middle cerebral artery thrombus (could not be ruled out on CT), hx of atrial fib not anticoagulated. Per HCP, no additional testing is wanted. Not safe to start anticoagulation on patient without knowing current labs, including renal and hepatic levels as these elevated can cause incr risk of bleeding. She is also a fall risk. 6. Hypernatremia, acute and likely 2/2 to use of diuretics and inability of patient to take fluids. Unable to start D5W and levels cannot be checked and OVERCORRECTION is also very dangerous with free water. 7. DM type II. No longer checking labs, encourage eating when possible. Consistent carb diet. 9. Hx of atrial fib, not on anticoagulation previously. C/w Bisoprolol, amlodipine. 10. Asthma. Albuterol PRN. 11. HTN. BP stable. Resumed BB, CCB, holding off on ACEi, ARB and diuretics currently. Can restart torsemide on 03/30/20 per nephrology. 12. Hypothyroidism. c/w home med 13. DVT px. Heparin SC. DISPOSITION: DNR/DNI status, family did not wish to make full LINE [facility]. They can provide 24/7 care with home health being referred. Also will be offered Hospice referral as well. TOTAL TIME SPENT ON DISCHARGE: GREATER THAN 30 MINS. Vital Signs/I&Os Vital Signs Date Time Temp Pulse Resp B/P (MAP) Pulse Ox O2 Delivery O2 Flow Rate FiO2 03/28/20 09:00 2.0 03/28/20 08:15 95 124/69 03/28/20 06:00 97.4 20 97 Nasal Cannula I&O- Last 24 Hours up to 6 AM 03/28/20 06:00 Intake Total 1080 ml Output Total 425 ml Balance 655 ml Microbiology Microbiology 03/25/20 Urine Culture - Final, Complete 03/25/20 Respiratory Virus Panel (PCR) (DAVID) - Final, Complete Discharge Medications Scheduled Amlodipine Besylate (Amlodipine Besylate) 10 Mg Tablet, 10 MG PO DAILY, (Reported) Atorvastatin Calcium (Atorvastatin Calcium) 10 Mg Tablet, 10 MG PO DAILY, (Reported) Bisoprolol Fumarate (Bisoprolol Fumarate) 5 Mg Tablet, 2.5 MG PO DAILY, (Reported) Calcitriol (Calcitriol) 0.25 Mcg Capsule, 0.25 MG PO DAILY, (Reported) Levothyroxine Sodium (Levothyroxine Sodium) 88 Mcg Tablet, 88 MCG PO QAM, (Reported) Omeprazole (Omeprazole) 20 Mg Capsule.dr, 20 MG PO DAILY, (Reported) Paroxetine HCl (Paroxetine HCl) 20 Mg Tablet, 20 MG PO DAILY, (Reported) Potassium Chloride (Potassium Chloride) 20 Meq Tablet.er, 20 MG PO DAILY, (Reported) Torsemide (Torsemide) 20 Mg Tablet, 20 MG PO Q3RD START TAKING ON 03/30/20 EVERY 3 DAYS Scheduled PRN Albuterol Sulfate (Proair Hfa) 8.5 Gm Hfa.aer.ad, 2 PUFF PO Q4H PRN for SHORTNESS OF BREATH, (Reported) Miscellaneous Medications [med rec comment] , (Reported) unable to speak w/patient, daughter unsure of last doses Allergies Coded Allergies: No Known Allergies (Unverified , 03/25/20) Galina Herbert MD Mar 28, 2020 15:10
[2020-03-28] MEDS ORDERED: TORS20TA2 PO (15:12)
== END 2020-03-28 16:40 | disposition home health service (06) | DRG 291 ==
LOC: M ED 15:18 → M ED INP 20:30 → ENRESERV 03-26 04:15 → M PCU 03-26 05:00 → M MS5PR 03-26 18:40
PROVIDERS: ADMIT Family Medicine; ATTEND Internal Medicine
DX: I13.0 Hypertensive heart and chronic kidney disease with heart failure and stage 1 through stage 4 chronic kidney disease, or unspecified chronic kidney disease (principal); G93.41 Metabolic encephalopathy; I50.33 Acute on chronic diastolic (congestive) heart failure; R44.0 Auditory hallucinations; N17.9 Acute kidney failure, unspecified; E87.0 Hyperosmolality and hypernatremia; N25.81 Secondary hyperparathyroidism of renal origin; N18.30 Chronic kidney disease, stage 3 unspecified; R33.9 Retention of urine, unspecified; Z66 Do not resuscitate; I66.02 Occlusion and stenosis of left middle cerebral artery; F41.9 Anxiety disorder, unspecified; E11.22 Type 2 diabetes mellitus with diabetic chronic kidney disease; I48.0 Paroxysmal atrial fibrillation; R44.1 Visual hallucinations; E66.9 Obesity, unspecified; L40.9 Psoriasis, unspecified; E03.9 Hypothyroidism, unspecified; R00.0 Tachycardia, unspecified; E78.00 Pure hypercholesterolemia, unspecified; J45.909 Unspecified asthma, uncomplicated; Z90.49 Acquired absence of other specified parts of digestive tract; Z79.899 Other long term (current) drug therapy; Z68.32 Body mass index [BMI] 32.0-32.9, adult

== ENCOUNTER → 2020-04-21 | Outpatient (REF) | payer MEDICARE ==
[~2020-04-21] MED LIST: AMLO1TAB25 PO; ATOR1TAB19 PO; BISO5TAB14 PO; CALC1CAP31 PO; CELE1CAP9 PO; LEVO88TA3 PO; OMEP-218 PO; PARO20TA3 PO; POTA1TAB14 PO; PROAAER10 PO; TORS20TA2 PO; VALS160T3 PO; med rec comment
[2020-04-21 14:19] LABS: BASO # 0.1 10^3/uL (0.0-0.2); BASO % 0.9 % (0.0-1.0); EOS # 0.3 10^3/uL (0.0-0.5); HEMATOCRIT 46.2 % (36.0-47.0); HEMOGLOBIN 14.2 g/dl (12.0-15.5); LYMPH # 1.4 10^3/uL (1.5-5.0); LYMPH % 17.5 % (24.0-44.0); MEAN CORPUSCULAR HEMOGLOBIN 30.6 pg (27.0-33.0); MEAN CORPUSCULAR HGB CONC 30.7 g/dl (32.0-36.5); MEAN CORPUSCULAR VOLUME 99.6 fl (80.0-96.0); MONO # 0.6 10^3/uL (0.0-0.8); MONO % 7.2 % (0.0-5.0); NEUTROPHILS # 5.8 10^3/uL (1.5-8.5); PLATELET COUNT, AUTOMATED 229 10^3/uL (150-450); RED BLOOD COUNT 4.64 10^6/uL (4.00-5.40); WHITE BLOOD COUNT 8.2 10^3/uL (4.0-10.0)
[2020-04-21 14:47] LABS: ALBUMIN 2.9 GM/DL (3.2-5.2); BILIRUBIN,TOTAL 0.5 MG/DL (0.2-1.0); CALCIUM LEVEL 9.8 MG/DL (8.8-10.2); CREATININE FOR GFR 2.14 MG/DL (0.55-1.30); GLOMERULAR FILTRATION RATE 23.1 (>32); POTASSIUM SERUM 4.3 MEQ/L (3.5-5.1); TOTAL PROTEIN 6.9 GM/DL (6.4-8.2)
[2020-04-21 14:57] LABS: PTH INTACT 117.8 PG/ML (18.5-88.0)
== END ==
LOC: M LAB REF 13:47
PROVIDERS: ATTEND Internal Medicine
DX: N18.30 Chronic kidney disease, stage 3 unspecified (principal); I12.9 Hypertensive chronic kidney disease with stage 1 through stage 4 chronic kidney disease, or unspecified chronic kidney disease; I50.9 Heart failure, unspecified